=== PATIENT | male | born 1955 | race Caucasian/White ===

== ENCOUNTER 2025-01-09 11:07 | Outpatient (AMB) | payer OTHER, SELFPAY ==
--- NOTE | 2025-01-09 11:35 | A.OFFVIS_ITS ---
Intake Visit Reasons: 3m f/u Accompanied by: Daughter Allergies No Known Allergies Allergy (Verified 01/09/25 11:36) Medication List - Last Reconciled 01/09/25 by Mary Carmen Clemons CNP bisacodyl 10 mg PO carbidopa-levodopa 25-100 mg 1.5 tabs PO QID escitalopram oxalate 10 mg PO DAILY 90 days rasagiline 1 mg PO QAM rosuvastatin 5 mg PO DAILY HPI Comments Details: He was here with his daughter (Gabby). He was taking carbidopa-levodopa 25- 100mg 1.5 tablets four times a day. Tremor was about the same, worse with stress and anxiety. No functional impairment. No difficulty eating, drinking, or swallowing. He felt more anxious, especially related to keeping up with work. He was worried and nervous that he may miss something. His daughter noted that he was more stressed when he was in the office. She noticed that he could be overwhelmed at times and sometimes did not know what to do next or how to proceed, for example if he got an email and was not sure how to respond. Staying active and exercising regularly, walking, riding bike, swimming, and scuba diving. His daughter also noted balance was off at times, but no falls. No difficulty getting up from chair or turning in bed. He had some occasional jerking movements of body or arms, usually at night. Sleep was okay, wakes a few times during the night to use bathroom. Previously felt he was moving slower, especially in the morning, stiff and muscles tight. Less energy, napping in the afternoon for 30-60 minutes. Working at [employer], flexible hours and working remote, daughter taking over practice. More irritable and less patience, some stress in marriage. Anxious and feels down some mornings which gets better as day goes on. Daughter noticed more anxiety and frustration. Goes to [employer] in summer. More anxious, stressed, and overwhelmed at work. Not able to deal with stress as well as before. Moving slowly in the morning. He developed tremors in his legs around 2019, was seen by Dr. Fagan about 6 months later and was told it was just tremor. By 2021, the tremor had gotten slowly worse and right leg was more involved. He felt that his balance was off. His gait had become more shuffling and he tended not to draft roller picker his right leg. His also became slow in doing everything. His posture had become somewhat stooped and he did not swing his arms when he walks. He also had a tendency to lose his balance. He has to rock himself out of the chair. He was moodier and agitated with grandchildren. Sometimes his eyes feel dry and to start water a lot. No change in his speech. His handwriting as well as been poor. Got a second opinion at [facility] and they concurred with Dx and RX. [facility] Medical History (Updated 01/09/25 @ 11:38 by Mary Carmen Clemons CNP) Anxiety HLD (hyperlipidemia) Parkinson disease Review of Systems Const Denies chills, Denies daytime sleepiness, Denies difficulty sleeping, Denies fatigue, Denies fever(s), Denies frequent falls, Denies headache(s), Denies increased appetite, Denies poor appetite, Denies snoring, Denies weakness, Denies weight gain and Denies weight loss Eyes Denies loss of vision ENT Denies vertigo, Denies dizziness, Denies headache(s) and Denies neck pain Card Denies chest pain at rest, Denies chest pain with activity, Denies syncope, Denies leg edema, Denies palpitations, Denies dyspnea and Denies dyspnea on exertion Resp Denies cough, Denies dyspnea, Denies dyspnea on exertion and Denies snoring GI Denies abdominal pain, Denies constipation, Denies heartburn, Denies diarrhea and Denies nausea Denies urinary frequency, Denies urinary incontinence and Denies urinary urgency Musc Denies abnormal gait, Denies back pain, Denies myalgias, Denies arthralgias, Denies neck pain, Denies numbness and Denies tingling Neuro Denies abnormal gait, Denies vertigo, Denies dizziness, Denies syncope, Denies frequent falls, Denies headache(s), Denies lack of coordination, Denies loss of vision, Denies memory loss, Denies numbness, Denies Other visual disturbances, Denies restless legs, Denies seizure-like activity, Denies tingling, Denies paresthesias, Reports tremor(s) and Denies weakness Psych Reports anxiety, Reports depression, Denies auditory hallucinations, Denies memory loss and Denies visual hallucinations Endo Denies fatigue and Denies palpitations Physical Exam Const Other: General Appearance:? normal, in no acute distress. Heart:? S1, S2 normal, no murmurs. Lungs:? clear anteriorly and posteriorly. Musculoskeletal:? normal. Extremities:? no edema. Psych:? alert, oriented, cognitive function intact, cooperative with exam. Neuro Other: Abnormal Neurological Findings:?Decreased facial expressions and reduced blinking frequency. Forward leaning posture and decreased arm swing bilaterally. Mild intermittent bilat leg resting Parkinsonian tremor with a flexion extension at the ankle and in abduction and abduction at the hip, increased when discussing stressors, L > R.?Mild intermittent resting tremor?to LUE.?Mild increase tone and cogwheeling rigidity to BUE, L > R. Mental Status: alert and oriented X 3. Normal attention, orientation, memory, and affect. Cranial Nerves: Pupils are equal, round, and reactive to light. External ocular muscles are intact. Visual altamirano are full, no ptosis. Face is symmetrical, no facial weakness or droop. Facial sensations are normal. Tongue protrudes in midline. Palate elevates symmetrically. Shoulder shrugging is normal Motor Examination: Normal muscle tone, bulk and strength. No atrophy or fasciculations. No drift of the extended upper extremities. DTR 2+. Plantars are flexor. Sensory Exam: Normal light touch, temperature, pinprick, vibration, and joint- position sensations. Rhomberg sign is absent. Coordination: No ataxia. No titubation. Gait Exam: As above. Cerebellar Signs: [id number] is okay. Extrapyramidal System: As above. Speech: Normal. Assessment & Plan Assessment & Plan (1) Parkinson disease: Code(s): G20.A1 - Parkinson's disease without dyskinesia, without mention of fluctuations Category: Medical Qualifiers: Dyskinesia presence: without dyskinesia Fluctuating manifestations: without fluctuating manifestations Qualified Code(s): G20.A1 - Parkinson's disease without dyskinesia, without mention of fluctuations Plan: They were educated on this condition, its progression, and treatment, and questions answered. They were given information where they could read more about it online. Continue rasagiline 1mg 1 tablet in the morning with food. Continue carbidopa-levodopa 25-100mg 1.5 tablets four times a day. Stay physically active. (2) Anxiety: Code(s): F41.9 - Anxiety disorder, unspecified Category: Medical Plan: Escitalopram did not help and medication was stopped. Start clonazepam 0.5mg 1 tablet at bedtime, use/side effects reviewed. Medications: New clonazepam (Klonopin) 0.5 mg PO BEDTIME 30 tabs 0RF 30 days Discontinued escitalopram oxalate Discontinued Reason: Doctor's Order 10 mg PO DAILY 90 days 90 tabs 1RF Coding Level of Care Code Est Pt Level 4 (43547) Diagnoses Parkinson's disease without dyskinesia or fluctuating manifestations G20.A1 Dyskinesia presence: without dyskinesia Fluctuating manifestations: without fluctuating manifestations Anxiety F41.9
--- OUTSIDE RECORDS SUMMARY | 2025-01-09 14:13 | XMS_ITS ---
Author Name [facility] Organization Unknown Encounters Encounter Type Encounter Reason Primary Diagnosis Location Date Ambulatory [facility] 02/28/2024 Care Team Organization Name Specialty Phone Email Start Date End Da te [facility] 10/12/2024 [facility] [id number] [facility] 11/17/2023 [facility] 09/06/2022
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
--- OUTSIDE RECORDS SUMMARY | 2025-01-09 14:13 | XMS_ITS | Clinical Summary ---
Author Organization [address] Address [address] [place] [phone] Phone Care Team Providers Care Machinist Instructor Name Role Phone Vy Antony MD Primary Care Provider [phone] Allergies No known active allergies Medications naproxen (NAPROSYN) 500 MG tablet Take 1 tablet (500 mg total) by mouth 2 (two) times daily.. 30 tablet 12/16/2016 Active aspirin 325 mg EC tablet Take 1 tablet (325 mg total) by mouth daily. 100 tablet 12/19/2020 Active famotidine (PEPCID) 20 mg tablet Take 1 tablet (20 mg total) by mouth 2 (two) times daily. 30 tablet 12/19/2020 Active Social History Tobacco Use Types Packs/Day Years Used Date Smoking Tobacco: Never Smokeless Tobacco: Never Alcohol Use Standard Drinks/Week Comments Yes 0 (1 standard drink = 0.6 oz pur e alcohol) Sex and Gender Information Value Date Recorded Sex Assigned at Not on file Legal Sex Male 7:47 PM EST Gender Identity Not on file Sexual Orientation Not on file Last Filed Vital Signs Vital Sign Reading Time Taken Comments Blood Pressure 124/65 12/19/2020 12:46 PM EDT Pulse 61 12/19/2020 12:46 PM EDT Temperature 36.5 C (97.7 F) 12/19/2020 7:53 AM EDT Respiratory Rate 18 12/19/2020 12:4 6 PM EDT Oxygen Saturation 98% 12/19/2020 12: 46 PM EDT Inhaled Oxygen Concentration - - Weight 80.2 kg (176 lb 12.9 oz) 12/19/2020 7:53 AM EDT Height 175.3 cm (5' 9 ) 12/16/2016 4:35 PM EDT Body Mass Index 26.11 12/16/2016 4:35 PM EDT Plan of Treatment Health Maintenance Due Date Last Done Comments HIV screening 1966 Hepatitis C screening 1971 Tetanus adult (Td q 10,TDAP once) 1973 Lipid disorder screening 1993 Colon cancer screening, Colonoscopy 1998 Pneumococcal Vaccine (50+ years) (1 of 1 - PCV) 2003 Shingles vaccine (Shingrix) (1 of 2 - Shingrix (RZV) 2 Dose Standard Series) 2003 Diabetes screening 12/20/2023 12/19/2020, 12/16/2016 Covid-19 vaccine series (1 - season) 2024 Influenza vaccine 12/31/2024 RSV Immunization (1 - 1-dose 75+ series) 02/15/2028 Meningococcal B Vaccine Aged Out No l onger eligible based on patient's age to complete this topic Meningococcal Vaccine Aged Out No cole michelle eligible based on patient's age to complete this topic Procedures Procedure Name Priority Date/Time Associated Diagnosis Comments BASIC METABOLIC PANEL STAT 12/19/2020 8:16 AM EDT from Last 3 Months or Most Recently Relevant to Health Maintenance Results * (ABNORMAL) Basic metabolic panel (12/19/2020 8:16 AM EDT) Glucose 135(H) 65 - 110 mg/dL 12/19/2020 9:12 AM [facility] Comment: Non-fastin-110 mg/dL Fasting (minimum 6 hrs): 65-99 mg/dL BUN 20(H) 7 - 18 mg/dL 12/19/2020 9:12 AM [facility] Creatinine 0.80 0.70 - 1.30 mg/dL 12/19/2020 9:12 AM [facility] eGFR (-CYMRAES) >60 >60 mL/min/1.7 3m2 12/19/2020 9:12 AM [facility] eGFR (NON -Angolan) >60 >60 mL/min/1.7 3m2 12/19/2020 9:12 AM [facility] Comment: (NOTE) These are estimated GFR values resulting from utilization of a calculation incorporating the best data available for input, but all assumptions may not be correct in every case. In addition, there are several situations (elderly over 70 years, , serious co morbidities, extremes of body size or nutritional status) which could contribute to a misleading result. Therefore, clinical correlation is advised to prevent arriving at an erroneous conclusion based solely on the calculation utilized. Sodium 143 136 - 145 mmol/L 12/19/2020 9:12 AM [facility] Potassium 4.1 3.5 - 5.1 mmol/L 12/19/2020 9:12 AM [facility] Chloride 110(H) 98 - 107 mmol/L 12/19/2020 9:12 AM [facility] CO2 26 21 - 32 mmol/L 12/19/2020 9:12 AM [facility] Anion Gap 7 5 - 15 mmol/L 12/19/2020 9:12 AM [facility] Calcium 8.9 8.5 - 10.1 mg/dL 12/19/2020 9:12 AM [facility] Blood Venipuncture / Unknown 12/19/2020 8:16 AM EDT 12/19/2020 8:21 AM EDT Ricardo Meehan DO LAB BLOOD ORDERABLES [place] [address], [facility] [phone] from Last 3 Months or Most Recently Relevant to Health Maintenance Insurance COMMERCIAL GENERIC MEDICARE [facility] on file COMMERCIAL GENERIC MEDICARE [facility] on file COMMERCIAL GENERIC [facility] Care Teams Machinist Instructor Relationship Specialty Start Date End Date Vy Antony MD PCP - General Internal Medicine 12/16/16
--- OUTSIDE RECORDS SUMMARY | 2025-01-09 14:13 | XMS_ITS | Patient Health Record ---
Author Organization [facility] [address] Address [address] [place] [address] Care Team Providers Care Public Health Epidemiologist Name Role Phone AIDAN ANTONY Primary Care Provider YONI MICHELE Unavailable [phone] Allergies No Known Allergies Results Component Value Reference Range Notes URINALYSIS WITH REFLEX MICRO SCOPIC Reviewed date:06/01/2024 08:55:27 AM Interpretation: Performing Lab: Notes/Report: Specific Seltzer Urine 1.015 1.003-1.030 pH, Urine 6.0 5.0-8.0 pH Leukocytes, Urine Negative Negative Nitrite, Urine Negative Negative Protein, Urine Negative <=Trace mg/dL Glucose, Urine Negative Negative mg/dL Ketones, Urine Negative Negative mg/dL Urobilinogen, Urine 0.2 0.2-1.0 mg/dL Bilirubin, Urine Negative Negative Blood, Urine Negative Negative COMPREHENSIVE METABOLIC PANE L Reviewed date:06/01/2024 09:13:08 AM Interpretation: Performing Lab: Notes/Report: Sodium 141 133-145 mmol/L Potassium 4.2 3.5-5.5 mmol/L Chloride 108 96-110 mmol/L CO2 32 21-32 mmol/L Anion Gap 1 3-11 Glucose 120 70-100 mg/dL BUN 18 5-25 mg/dL Creatinine 0.87 0.70-1.30 mg/dL eGFR 92 >=60 mL/min/1.73m2 Calculati on based on the?Chronic Kidney Disease Epidemiology Collaboration (CKD-EPI) equation refit?without adjustment for race. BUN/Creatinine Ratio 20.7 Calcium 9.1 8.5-10.5 mg/dL AST (SGOT) 22 10-42 unit/L ALT (SGPT) 16 10-60 unit/L Alkaline Phosphatase 67 42-121 unit/L Total Protein 6.7 6.0-8.0 g/dL Albumin 3.6 3.2-5.0 g/dL Total Bilirubin 0.4 0.0-1.4 mg/dL THYROID STIMULATING HORMONE Reviewed date:06/01/2024 08:55:27 AM Interpretation: Performing Lab: Notes/Report: TSH 2.45 0.40-4.00 mcIU/mL LIPID PANEL WITH REFLEX TO D IRECT LDL Reviewed date:06/01/2024 09:15:01 AM Interpretation: Performing Lab: Notes/Report: Cholesterol 198 0-200 mg/dL Triglycerides 87 0-150 mg/dL HDL 76 >=40 mg/dL LDL Calculated 105 0-100 mg/dL VLDL Cholesterol Nabil 17.4 Non HDL Chol. (LDL+VLDL) 122 <145 mg/dL Chol/HDL Ratio 2.6 0.0-4.4 CBC WITH AUTO DIFFERENTIAL Reviewed date:11/21/2024 12:47:54 PM Interpretation: Performing Lab: Notes/Report: WBC 6.5 4.8-10.8 K/mcL RBC 4.70 4.50-5.50 M/mcL Hemoglobin 14.3 13.5-17.5 g/dL Hematocrit 44.7 42.0-54.0 % MCV 94.7 79.0-98.0 FL MCH 30.3 27.0-32.0 pcg MCHC 32.0 32.0-37.0 g/dL RDW 13.3 11.0-15.0 % Platelets 247 130-400 K/mcL MPV 10.4 7.0-11.0 FL NRBC 0.0 <1.0 % NRBC Absolute 0.00 <0.10 K/mcL Neutrophils Relative 60.5 Lymphocytes Relative 23.2 Monocytes Relative 9.9 Eosinophils Relative 5.5 Basophils Relative 0.6 Immature Granulocytes Relative 0.3 Neutrophils Absolute 3.95 1.50-7.00 K/mcL Lymphocytes Absolute 1.52 1.00-5.00 K/mcL Monocytes Absolute 0.65 0.20-1.00 K/mcL Eosinophils Absolute 0.36 0.00-0.50 K/mcL Basophils Absolute 0.04 0.00-0.20 K/mcL Immature Granulocytes Absolute 0.02 0.00-0.03 K/mcL CBC WITH AUTO DIFFERENTIAL Reviewed date:06/01/2024 09:14:50 AM Interpretation: Performing Lab: Notes/Report: WBC 6.1 4.8-10.8 K/mcL RBC 4.70 4.50-5.50 M/mcL Hemoglobin 13.8 13.5-17.5 g/dL Hematocrit 43.7 42.0-54.0 % MCV 92.4 79.0-98.0 FL MCH 29.2 27.0-32.0 pcg MCHC 31.6 32.0-37.0 g/dL RDW 15.3 11.0-15.0 % Platelets 258 130-400 K/mcL MPV 10.9 7.0-11.0 FL NRBC 0.0 <1.0 % NRBC Absolute 0.00 <0.10 K/mcL Neutrophils Relative 63.6 Lymphocytes Relative 20.3 Monocytes Relative 10.1 Eosinophils Relative 5.2 Basophils Relative 0.5 Immature Granulocytes Relative 0.3 Neutrophils Absolute 3.88 1.50-7.00 K/mcL Lymphocytes Absolute 1.24 1.00-5.00 K/mcL Monocytes Absolute 0.62 0.20-1.00 K/mcL Eosinophils Absolute 0.32 0.00-0.50 K/mcL Basophils Absolute 0.03 0.00-0.20 K/mcL Immature Granulocytes Absolute 0.02 0.00-0.03 K/mcL FREE PSA PROFILE Reviewed date:03/12/2024 09:16:50 AM Interpretation: Performing Lab: Notes/Report: The Siemens Advia Centaur Chemiluminescent Immunoassay Free PSA is a calculated value. The diagnostic usefulness is used. Results obtained with different assay methods or of % free PSA has not been established in patients with kits cannot be used interchangeably. Results cannot be Total PSA below 2.6 or above 10 ng/mL. interpreted as absolute evidence of the presence or absence of malignant disease This test was performed using the Centaur Chemiluminescent method. PSA values obtained with other methods cannot be used interchangeably PROSTATIC SPECIFIC ANTIGEN 4.0 0.0-4.0 ng/mL The Siemens Advia Centaur Chemiluminescent Immunoassay is used. Results obtained with different assay methods or kits cannot be used interchangeably. Results cannot be interpreted as absolute evidence of the presence or absence of malignant disease COMPLEXED PSA 3.2 0.0-3.0 ng/mL FREE PSA (CALCULATED) 0.8 %FREE PSA 20 > 25 % TSH Reviewed date:03/01/2024 10:29:26 AM Interpretation: Performing Lab: Notes/Report: [employer], [place] [address] [employer] - Sabine Hammonds MD TSH 1.47 0.40-4.00 uIU/ml LIPID PROFILE Reviewed date:03/01/2024 10:23:35 AM Interpretation: Performing Lab: Notes/Report: CHOLESTEROL 176 0-200 mg/dL TRIGLYCERIDES 60 0-150 mg/dL HDL CHOLESTEROL 75 >40 mg/dL LDL CALCULATED 89 0-100 mg/dL TC-HDLC RATIO 2.4 0-4.4 mg/dL CBC WITH AUTO DIFF Reviewed date:03/01/2024 10:23:45 AM Interpretation: Performing Lab: Notes/Report: Original Ordering Provider: AIDAN ANTONY MD [employer], [place] [address] [employer] - Sabine Hammonds MD WBC 5.7 4.8-10.8 x10-3/uL RBC 4.2 4.5-5.5 x10-6/uL HEMOGLOBIN 12.2 13.5-17.5 g/dL HEMATOCRIT 38.9 42-54 % MCV 92.4 79-98 fL MCH 29.0 27-32 pg MCHC 31.4 32-37 g/dL RDW 13.4 11-15 % PLT COUNT 290 130-400 x10-3/uL MEAN PLATELET VOLUME 10.6 7-11 fL NRBC % AUTO 0.0 <1 % NEUT % 55.2 LYMPH % 24.8 MONO % 12.4 EOS % 6.3 BASO % 1.0 IMMATURE GRANULOCYTES % 0.3 NRBC # AUTO 0.00 <0.1 x10-3/uL ABSOLUTE NEUT 3.15 1.5-7.0 x10-3/uL LYMPH # 1.42 1-5.0 x10-3/uL MONO # 0.71 0.2-1.0 x10-3/uL EOS # 0.36 0-0.5 x10-3/uL BASO # 0.06 0-0.2 x10-3/uL IMMATURE GRANULOCYTES # 0.02 0-0.03 x10-3/uL COMPREHENSIVE METABOLIC PANE L Reviewed date:03/01/2024 11:28:30 AM Interpretation: Performing Lab: Notes/Report: Note Original Orderi ng Provider: AIDAN ANTONY MD GLUCOSE 125 70-100 mg/dL Reference range applicable to fasting specimens only BUN 23 5-25 mg/dL CREAT 0.95 0.7-1.3 mg/dL GLOMERULAR FILTRATION RATE 86 >60 This eGFR result was calculated using the CKD-EPI 2020 Creatinine Equation SODIUM 141 135-145 mEq/L POTASSIUM 4.1 3.5-5.5 mmol/L CHLORIDE 108 96-110 mmol/L CO2 29 21-32 mmol/L ANION GAP 4 3-11 CALCIUM 9.1 8.5-10.5 mg/dL TOTAL PROTEIN 6.5 6.0-8.0 G/dL ALBUMIN 3.5 3.2-5.0 G/dL BILI,TOTAL 0.5 0.0-1.4 mg/dL SGOT 17 10-42 U/L SGPT 14 10-60 U/L ALK PHOS 77 42-121 U/L URINALYSIS Reviewed date:03/01/2024 10:29:08 AM Interpretation: Performing Lab: Notes/Report: Note Original Ordering Provider: AIDAN ANTONY MD [employer] [place] [address] [employer] - Sabine Hammonds MD GLUCOSE, (UA) NEGATIVE NEGATIVE mg/dL BILIRUBIN, URINE NEGATIVE NEGATIVE KETONE, URINE NEGATIVE NEGATIVE mg/dL SPECIFIC GRAVITY, URINE 1.024 1.003-1.030 BLOOD, URINE NEGATIVE NEGATIVE PH, URINE 5.5 5.0-8.0 PROTEIN, URINE NEGATIVE <= TRACE mg/dl UROBILINOGEN, URINE 0.2 0.2-1.0 E.U./dL NITRITE, URINE NEGATIVE NEGATIVE LEUKOCYTE ESTERASE, URINE NEGATIVE NEGATIVE Note Original Ordering Provider: AIDAN ANTONY MD [employer], [place] [address] [employer] - Sabine Hammonds MD PROSTATE SPECIFIC ANTIGEN ROSA GONZALEZ Reviewed date:11/21/2024 12:47:54 PM Interpretation: Performing Lab: Notes/Report: The Siemens Advia FUJIAN HAIYUANaur Chemiluminescent Immunoassay is used. Results obtained with different assay methods or kits cannot be used interchangeably. Results cannot be interpreted as absolute evidence of the presence or absence of malignant disease. PSA 4.00 0.00-4.00 ng/mL COMPREHENSIVE METABOLIC PANE L Reviewed date:11/21/2024 12:47:54 PM Interpretation: Performing Lab: Notes/Report: Sodium 140 133-145 mmol/L Potassium 4.2 3.5-5.5 mmol/L Chloride 107 96-110 mmol/L CO2 30 21-32 mmol/L Anion Gap 3 3-11 Glucose 116 70-100 mg/dL BUN 18 5-25 mg/dL Creatinine 0.86 0.70-1.30 mg/dL eGFR 93 >=60 mL/min/1.73m2 Calculati on based on the Chronic Kidney Disease Epidemiology Collaboration (CKD-EPI) equation refit without adjustment for race. BUN/Creatinine Ratio 20.9 Calcium 9.1 8.5-10.5 mg/dL AST (SGOT) 14 10-42 unit/L ALT (SGPT) 9 10-60 unit/L Alkaline Phosphatase 67 42-121 unit/L Total Protein 6.7 6.0-8.0 g/dL Albumin 3.8 3.2-5.0 g/dL Total Bilirubin 0.7 0.0-1.4 mg/dL LIPID PANEL WITH REFLEX TO D IRECT LDL Reviewed date:11/21/2024 12:47:54 PM Interpretation: Performing Lab: Notes/Report: Cholesterol 192 0-200 mg/dL Triglycerides 120 0-150 mg/dL HDL 70 >=40 mg/dL LDL Calculated 98 0-100 mg/dL VLDL Cholesterol Nabil 24 Non HDL Chol. (LDL+VLDL) 122 <145 mg/dL Chol/HDL Ratio 2.7 0.0-4.4 HEMOGLOBIN A1c Reviewed date:11/28/2024 01:16:39 PM Interpretation:5.9 Performing Lab: Notes/Report: 5.9 Reason For Referral No Information Medications Medication SIG (Take, Route, Frequency, Duration) Notes Start Date End Date Status Rasagiline Mesylate 1 MG 1 tablet Orally Once a day Active Carbidopa-Levodopa 25-100 MG 1 tablet as needed Orally 4 times a day Active Rosuvastatin Calcium 5 MG TAKE 1 TABLET BY MOUTH EVERY DAY; Duration: 90 Active Magnesium 400 MG as directed Orally Active Escitalopram Oxalate 10 MG 1 tablet Oral ly Once a day Active Sertraline HCl 50 MG 1 tablet Orally Onc e a day Active Flax Seed Oil 1000 MG as directed Orally Active Ibuprofen 600 MG TAKE 1 TABLET BY LIBERTY TH 3 TIMES A DAY NEEDED WITH FOOD/MILK; Duration: 30 Active Immunizations Vaccine Route Administration Date Status Comme nts prevnar 13 Unknown 04/10/2018 Administered Tdap Unknown 01/26/2016 Administered Social History Tobacco Use: Social History Observation Description Date Details (start date - stop date) Never Smoker NA - NA Tobacco Use/Smoking Question Answer Notes Are you a nonsmoker Problems Problem Type SNOMED Code ICD Code Onset Dates Problem Status W/U Status Risk Notes Problem Vitamin D deficiency (55677239) Vitamin D deficiency, unspecified (E55.9) Active confirmed Problem Mixed hyperlipidemia (232462146) Mixed hyperlipidemia (E78.2) Active confirmed Problem Hyperlipidemia (15097145) Hyperlipidemia, unspecified (E78.5) Active confirmed Problem Otitis externa of left ear (2897031081791416) Otitis externa in other diseases classified elsewhere, left ear (H62.42) Active confirmed Problem Constipation (13956876) Constipation, unspecified (K59.00) Active confirmed Problem Screening for malignant neoplasm of prostate (373758817) Encounter for screening for malignant neoplasm of prostate (Z12.5) Active confirmed Problem Diabetes mellitus screening (649114762) Encounter for screening for diabetes mellitus (Z13.1) Active confirmed Problem Lower urinary tract symptoms due to benign prostatic hypertrophy (92607228995528) Benign prostatic hyperplasia with lower urinary tract symptoms (N40.1) Active confirmed Problem Pure hypercholesterolemia (847168111) Pure hypercholesterolemia (E78.00) Active confirmed Problem Hyperlipidaemia (91634702) Hyperlipidemia, unspecified hyperlipidemia type (E78.5) Active confirmed Problem Anxiety (80234362) Anxiety (F41.9) Active confi rmed Problem Adult health examination (344117493) Adult general medical exam (Z00.00) Active confirmed Problem Annual health maintenance examination (27192130) Annual physical exam (Z00.00) Active confirmed Problem Tremor (31255326) Tremor (R25.1) Active confirm ed Problem Constipation (70566444) Constipation, unspecified constipation type (K59.00) Active confirmed Problem Parkinson disease (42414517) Parkinson disease (G20) Active confirmed Problem Anemia (078623984) Acute anemia (D64.9) Active confirmed Problem 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) PVC (premature ventricular contraction) (I49.3) Active confirmed Problem History of anemia (074470808) History of anemia (Z86.2) Active confirmed Problem Otalgia of left ear (3526328407) Otalgia of left ear (H92.02) Active confirmed Problem Lipid screening (401972057) Lipid screening (Z13.220) Active confirmed Problem Disorder of bilatera l ears (disorder) (1623145186397250) Congestion of both ears (H93.8X3) Active confirmed Problem Parkinsonism (disorder) (16619416) Parkinsonism, unspecified (G20.C) Active confirmed Problem Benign prostatic hypertrophy without outflow obstruction (084103548) BPH without urinary obstruction (N40.0) Active confirmed Problem Generalized anxiety disorder (99745895) Anxiety, generalized (F41.1) Active confirmed Problem Parkinson's disease (disorder) (75337310) Parkinson's disease, unspecified whether dyskinesia present, unspecified whether manifestations fluctuate (G20.A1) Active confirmed Vital Signs Heart Rate 62 /min 11/28/2024 Oximetry 98 % 11/28/2024 Blood pressure diastolic 66 mm Hg 11/28/2024 Height 68 in 11/28/2024 Blood pressure systolic 120 mm Hg 11/28/2024 Weight 180.8 lbs 11/28/2024 BMI 27.49 kg/m2 11/28/2024 Encounters Encounter Location Date Provider Diagnosis [facility] [address] [place] [address] 03/07/2024 YONI LENY Mixed hyperlipidemia E78.2 ; Parkinson disease G20 ; Benign prostatic hyperplasia with lower urinary tract symptoms N40.1 ; Anxiety, generalized F41.1 ; History of anemia Z86.2 and Parkinson's disease, unspecified whether dyskinesia present, unspecified whether manifestations fluctuate G20.A1 [facility] [address] [place] [address] 05/31/2024 YONI LENY Mixed hyperlipidemia E78.2 ; General medical exam Z00.00 ; Parkinson disease G20 ; Constipation, unspecified K59.00 ; Anxiety F41.9 ; BPH without urinary obstruction N40.0 ; Annual physical exam Z00.00 ; Encounter for screening for diabetes mellitus Z13.1 ; Encounter for screening for malignant neoplasm of prostate Z12.5 ; Depression screening Z13.31 ; Screening for substance abuse Z13.89 ; Advanced directives, counseling/discussion Z71.89 and Screening for diabetes mellitus Z13.[address] [facility] [address] [place] [address] 11/28/2024 YONI LENY Hyperlipidemia, unspecified hyperlipidemia type E78.5 ; Parkinson disease G20 ; Prediabetes R73.03 ; Benign prostatic hyperplasia with lower urinary tract symptoms N40.1 and Encounter for examination of blood pressure without abnormal findings Z01.[address] [facility] [address] [place] [address] 01/20/2024 TALAL ANTONY [facility] [address] [place] [address] 05/28/2024 YONI LENY [facility] [address] [place] [address] 05/28/2024 YONI LENY Benign prostatic hyperplasia with lower urinary tract symptoms N40.1 [facility] [address] [address] 08/01/2024 TALAL ANTONY [facility] [address] [facility] [address] [place] [address] 11/29/2024 YONI LENY [facility] [address] [facility] [address] [place] [address] 05/31/2024 TALAL ANTONY [facility] [address] [address] 11/28/2024 YONI LENY Assessments Encounter Date Diagnosis (ICD Code) Assessment Notes Treatment Notes Treatment Clinical Notes Section Notes 03/07/2024 Mixed hyperlipidemia (ICD-10 - E78.2) Lorne is a 69-year-old male present today for follow-up. Past medical history includes hyperlipidemia, Parkinson's, BPH. #Hyperlipidemia: Most recent labs showed lipids all within normal limits. Plan to continue rosuvastatin 5 mg p.o. once daily. # Parkinson's: Patient currently on carbidopa-levodopa 25-100 mg 4 times daily as needed. In addition to rasagiline 1 mg p.o. once daily. Patient states tremors are at a minimum and has been stable since he was diagnosed at age 67. Patient very active and exercises daily in addition to a well-balanced diet in order to promote overall health. # BPH: Well-managed. Patient currently not on any medications. Follows up with urology as needed. # Anxiety: Patient states he is doing well on sertraline 25 mg p.o. once daily. Denies anxiety or depression or SI. No further management needed. #Constipation: Patient reports history of constipation. States he is on a regimen of magnesium with flaxseed oil 1000 mg p.o. once daily for which she takes at night. # Anemia: Most recent blood work indicate slightly low RBC, slightly low hemoglobin and hematocrit of 12.2 and 38.9. Has been anemic in the past and trialed with iron supplment. Patient reports he donates blood every 8 weeks as often as he can. This may be the cause or related. Recommended patient take an iron supplement and stop donating blood at this time. Of note we discussed how this may cause constipation and recommended patient taking iron supplement every other day or every 3 days until next follow up. Follow up in 3 months for lab repeat. All questions answered to patients satisfaction. Patient verbalized understanding of diagnosis and treatments explained. To call sooner prior to next visit it any questions/concerns arise. Case discussed with collaborating physician Dr. Antony who reviewed the assessment and plan. Chart, medications, labs, vital signs reviewed. Dictation was accomplished with the use of Noah voice recognition software, prone to medical misidentifications and grammatical errors. This is unintentional and the practitioner does try to identify and correct these, but some could still be present. Please do not hesitate to contact practitioner for clarification. 03/07/2024 Parkinson disease (ICD-10 - G20) Lorne is a 69-year-old male present today for follow-up. Past medical history includes hyperlipidemia, Parkinson's, BPH. #Hyperlipidemia: Most recent labs showed lipids all within normal limits. Plan to continue rosuvastatin 5 mg p.o. once daily. # Parkinson's: Patient currently on carbidopa-levodopa 25-100 mg 4 times daily as needed. In addition to rasagiline 1 mg p.o. once daily. Patient states tremors are at a minimum and has been stable since he was diagnosed at age 67. Patient very active and exercises daily in addition to a well-balanced diet in order to promote overall health. # BPH: Well-managed. Patient currently not on any medications. Follows up with urology as needed. # Anxiety: Patient states he is doing well on sertraline 25 mg p.o. once daily. Denies anxiety or depression or SI. No further management needed. #Constipation: Patient reports history of constipation. States he is on a regimen of magnesium with flaxseed oil 1000 mg p.o. once daily for which she takes at night. # Anemia: Most recent blood work indicate slightly low RBC, slightly low hemoglobin and hematocrit of 12.2 and 38.9. Has been anemic in the past and trialed with iron supplment. Patient reports he donates blood every 8 weeks as often as he can. This may be the cause or related. Recommended patient take an iron supplement and stop donating blood at this time. Of note we discussed how this may cause constipation and recommended patient taking iron supplement every other day or every 3 days until next follow up. Follow up in 3 months for lab repeat. All questions answered to patients satisfaction. Patient verbalized understanding of diagnosis and treatments explained. To call sooner prior to next visit it any questions/concerns arise. Case discussed with collaborating physician Dr. Antony who reviewed the assessment and plan. Chart, medications, labs, vital signs reviewed. Dictation was accomplished with the use of [employer] voice recognition software, prone to medical misidentifications and grammatical errors. This is unintentional and the practitioner does try to identify and correct these, but some could still be present. Please do not hesitate to contact practitioner for clarification. 05/28/2024 Benign prostatic hyperplasia with lower urinary tract symptoms (ICD-10 - N40.1) 05/31/2024 Mixed hyperlipidemia (ICD-10 - E78.2) Lorne is a pleasant 69-year-old male present today for MWV. #Hyperlipidemia: Managed on rosuvastatin 5 mg p.o. once daily. Most recent labs reveal slightly elevated LDL of 105. Patient reports he recently returned back from [facility] and this may be related to diet. Plan to continue rosuvastatin 5 mg and make lifestyle modifications including limiting butter, fried food and fatty food from diet. Encouraged eating more fiber, protein, fruits and vegetables. Plan to repeat lipids with next follow-up. # Parkinson's: Patient currently on carbidopa-levodopa 25-100 mg 4 times daily as needed. In addition to rasagiline 1 mg p.o. once daily. Patient states tremors are at a minimum and has been stable since he was diagnosed at age 67. Patient very active and exercises daily in addition to a well-balanced diet in order to promote overall health. #Anxiety: Patient overall doing well and managing on sertraline 50 mg p.o. once daily. Does not need refills at this time. # Elevated glucose of 120. A1c in office today --- 5.7%. Will continue to monitor. # BPH: Well-managed. Patient currently not on any medications. Follows up with urology as needed. #Constipation: Patient reports history of constipation. States he is on a regimen of magnesium with flaxseed oil 1000 mg p.o. once daily for which she takes at night. #Anemia: Resolved. Patient reports history of anemia. Previous blood work revealed slightly low RBC and slightly low hemoglobin hematocrit of 12.2 and 38.9. Has trialed iron supplements. States he donates blood every 8 weeks as often as he can. Recommended patient positives the donation of blood in order to see improvement in CBC. Patient was recommended to start iron supplement but states due to history of constipation he avoided this. Most recent blood work reveals CBC has returned to normal limits. This includes RBCs, hemoglobin and hematocrit. Advised patient to discontinue blood donations as we continue to monitor CBC. Plan to repeat CBC with 6-month follow-up. #Prevention: Up-to-date on all vaccines including influenza, COVID, pneumococcal, shingles, tetanus and RSV. Patient to undergo another colonoscopy. Last was performed in 2018 with plans to repeat in 5 years. This has been delayed due to Dr. Boothe schedule. This is now scheduled for July 2024. Discussed labs which are all within normal limits aside from what was addressed above. Fall risk assessment performed. Patient denies any alcohol, tobacco or marijuana or other drug use. HCP discussed. Plan to follow-up in 6 months and repeat labs including CBC, CMP, lipid, hemoglobin A1c and PSA. Patient is here for a Medicare wellness visit. Complete paperwork was reviewed and updated and has been filed and scanned. Depression screen completed. Alcohol AUDIT SCREEN completed. Obesity screen completed. Cardiovascular risk stratification screen completed. Cognition assessed and within reasonable limits Fall risk assessed. Discussed healthcare proxy. Discussed [place] order for life sustaining treatment, end-of-life issues, intubation and resuscitation dialysis artificial nutrition and hydration is appropriate. We discussed [place] order for life sustaining treatment and healthcare proxy. We discussed need for resuscitation, intubation, ventilation, need for dialysis, short-term versus long-term, nutrition, IV nutrition and hydration. Total time spent was 45 minutes with greater than 50% spent on counseling and coordinating care. Our practice utilizes Medicare approve Chronic Care management. This covers your referrals, prescription renewals, health maintenance and after hour phone calls. All questions answered to patients satisfaction. Patient verbalized understanding of diagnosis and treatments explained. To call sooner prior to next visit it any questions/concerns arise. Case discussed with collaborating physician Dr. Antony who reviewed the assessment and plan. Chart, medications, labs, vital signs reviewed. Dictation was accomplished with the use of [employer] voice recognition software, prone to medical misidentifications and grammatical errors. This is unintentional and the practitioner does try to identify and correct these, but some could still be present. Please do not hesitate to contact practitioner for clarification. 05/31/2024 General medical exam (ICD-10 - Z00.00) Lorne is a pleasant 69-year-old male present today for [facility]. #Hyperlipidemia: Managed on rosuvastatin 5 mg p.o. once daily. Most recent labs reveal slightly elevated LDL of 105. Patient reports he recently returned back from [facility] and this may be related to diet. Plan to continue rosuvastatin 5 mg and make lifestyle modifications including limiting butter, fried food and fatty food from diet. Encouraged eating more fiber, protein, fruits and vegetables. Plan to repeat lipids with next follow-up. # Parkinson's: Patient currently on carbidopa-levodopa 25-100 mg 4 times daily as needed. In addition to rasagiline 1 mg p.o. once daily. Patient states tremors are at a minimum and has been stable since he was diagnosed at age 67. Patient very active and exercises daily in addition to a well-balanced diet in order to promote overall health. #Anxiety: Patient overall doing well and managing on sertraline 50 mg p.o. once daily. Does not need refills at this time. # Elevated glucose of 120. A1c in office today --- 5.7%. Will continue to monitor. # BPH: Well-managed. Patient currently not on any medications. Follows up with urology as needed. #Constipation: Patient reports history of constipation. States he is on a regimen of magnesium with flaxseed oil 1000 mg p.o. once daily for which she takes at night. #Anemia: Resolved. Patient reports history of anemia. Previous blood work revealed slightly low RBC and slightly low hemoglobin hematocrit of 12.2 and 38.9. Has trialed iron supplements. States he donates blood every 8 weeks as often as he can. Recommended patient positives the donation of blood in order to see improvement in CBC. Patient was recommended to start iron supplement but states due to history of constipation he avoided this. Most recent blood work reveals CBC has returned to normal limits. This includes RBCs, hemoglobin and hematocrit. Advised patient to discontinue blood donations as we continue to monitor CBC. Plan to repeat CBC with 6-month follow-up. #Prevention: Up-to-date on all vaccines including influenza, COVID, pneumococcal, shingles, tetanus and RSV. Patient to undergo another colonoscopy. Last was performed in 2018 with plans to repeat in 5 years. This has been delayed due to Dr. Boothe schedule. This is now scheduled for July 2024. Discussed labs which are all within normal limits aside from what was addressed above. Fall risk assessment performed. Patient denies any alcohol, tobacco or marijuana or other drug use. HCP discussed. Plan to follow-up in 6 months and repeat labs including CBC, CMP, lipid, hemoglobin A1c and PSA. Patient is here for a Medicare wellness visit. Complete paperwork was reviewed and updated and has been filed and scanned. Depression screen completed. Alcohol AUDIT SCREEN completed. Obesity screen completed. Cardiovascular risk stratification screen completed. Cognition assessed and within reasonable limits Fall risk assessed. Discussed healthcare proxy. Discussed [place] order for life sustaining treatment, end-of-life issues, intubation and resuscitation dialysis artificial nutrition and hydration is appropriate. We discussed [place] order for life sustaining treatment and healthcare proxy. We discussed need for resuscitation, intubation, ventilation, need for dialysis, short-term versus long-term, nutrition, IV nutrition and hydration. Total time spent was 45 minutes with greater than 50% spent on counseling and coordinating care. Our practice utilizes Medicare approve Chronic Care management. This covers your referrals, prescription renewals, health maintenance and after hour phone calls. All questions answered to patients satisfaction. Patient verbalized understanding of diagnosis and treatments explained. To call sooner prior to next visit it any questions/concerns arise. Case discussed with collaborating physician Dr. Antony who reviewed the assessment and plan. Chart, medications, labs, vital signs reviewed. Dictation was accomplished with the use of [employer] voice recognition software, prone to medical misidentifications and grammatical errors. This is unintentional and the practitioner does try to identify and correct these, but some could still be present. Please do not hesitate to contact practitioner for clarification. 11/28/2024 Hyperlipidemia, unspecified hyperlipidemia type (ICD-10 - E78.5) Lorne is a pleasant 69-year-old male present today for follow-up. #Colonoscopy performed in up-to-date. Will try to obtain these records. #Hyperlipidemia: Lipids stable. Continue rosuvastatin 5 mg p.o. once daily. #Parkinson's: Followed by neurology. Managed on carbidopa-levodopa and rasagiline. States he was diagnosed at age of 67. Overall very active and exercises daily in addition to eating well-balanced diet in order to promote overall health. #Anxiety: Switched from sertraline to escitalopram and overall doing well. Prescribed by neurologist. #Prediabetes: A1c has increased from 5.7-5.9. Provided handout of a diabetic healthy diet. Encouraged to focus on diet and exercise. Did discuss that this A1c is considered prediabetes however age-appropriate. Will continue to monitor. #BPH: Well-managed. Followed by urology. Monitors PSA routinely. #History of constipation: Currently on a regimen of magnesium and flaxseed oil daily. #Anemia: Resolved. #Plan to follow-up in 6 months for Medicare wellness visit with labs. All questions answered to patients satisfaction. Patient verbalized understanding of diagnosis and treatments explained. To call sooner prior to next visit it any questions/concerns arise. Case discussed with collaborating physician Dr. Antony who reviewed the assessment and plan. Chart, medications, labs, vital signs reviewed. Dictation was accomplished with the use of [employer] voice recognition software, prone to medical misidentifications and grammatical errors. This is unintentional and the practitioner does try to identify and correct these, but some could still be present. Please do not hesitate to contact practitioner for clarification. 11/28/2024 Parkinson disease (ICD-10 - G20) Lorne is a pleasant 69-year-old male present today for follow-up. #Colonoscopy performed in up-to-date. Will try to obtain these records. #Hyperlipidemia: Lipids stable. Continue rosuvastatin 5 mg p.o. once daily. #Parkinson's: Followed by neurology. Managed on carbidopa-levodopa and rasagiline. States he was diagnosed at age of 67. Overall very active and exercises daily in addition to eating well-balanced diet in order to promote overall health. #Anxiety: Switched from sertraline to escitalopram and overall doing well. Prescribed by neurologist. #Prediabetes: A1c has increased from 5.7-5.9. Provided handout of a diabetic healthy diet. Encouraged to focus on diet and exercise. Did discuss that this A1c is considered prediabetes however age-appropriate. Will continue to monitor. #BPH: Well-managed. Followed by urology. Monitors PSA routinely. #History of constipation: Currently on a regimen of magnesium and flaxseed oil daily. #Anemia: Resolved. #Plan to follow-up in 6 months for Medicare wellness visit with labs. All questions answered to patients satisfaction. Patient verbalized understanding of diagnosis and treatments explained. To call sooner prior to next visit it any questions/concerns arise. Case discussed with collaborating physician Dr. Antony who reviewed the assessment and plan. Chart, medications, labs, vital signs reviewed. Dictation was accomplished with the use of [employer] voice recognition software, prone to medical misidentifications and grammatical errors. This is unintentional and the practitioner does try to identify and correct these, but some could still be present. Please do not hesitate to contact practitioner for clarification. 11/28/2024 Prediabetes (ICD-10 - R73.03) Lorne is a pleasant 69-year-old male present today for follow-up. #Colonoscopy performed in up-to-date. Will try to obtain these records. #Hyperlipidemia: Lipids stable. Continue rosuvastatin 5 mg p.o. once daily. #Parkinson's: Followed by neurology. Managed on carbidopa-levodopa and rasagiline. States he was diagnosed at age of 67. Overall very active and exercises daily in addition to eating well-balanced diet in order to promote overall health. #Anxiety: Switched from sertraline to escitalopram and overall doing well. Prescribed by neurologist. #Prediabetes: A1c has increased from 5.7-5.9. Provided handout of a diabetic healthy diet. Encouraged to focus on diet and exercise. Did discuss that this A1c is considered prediabetes however age-appropriate. Will continue to monitor. #BPH: Well-managed. Followed by urology. Monitors PSA routinely. #History of constipation: Currently on a regimen of magnesium and flaxseed oil daily. #Anemia: Resolved. #Plan to follow-up in 6 months for Medicare wellness visit with labs. All questions answered to patients satisfaction. Patient verbalized understanding of diagnosis and treatments explained. To call sooner prior to next visit it any questions/concerns arise. Case discussed with collaborating physician Dr. Antony who reviewed the assessment and plan. Chart, medications, labs, vital signs reviewed. Dictation was accomplished with the use of [employer] voice recognition software, prone to medical misidentifications and grammatical errors. This is unintentional and the practitioner does try to identify and correct these, but some could still be present. Please do not hesitate to contact practitioner for clarification. 05/31/2024 Parkinson disease (ICD-10 - G20) Lorne is a pleasant 69-year-old male present today for [facility]. #Hyperlipidemia: Managed on rosuvastatin 5 mg p.o. once daily. Most recent labs reveal slightly elevated LDL of 105. Patient reports he recently returned back from [facility] and this may be related to diet. Plan to continue rosuvastatin 5 mg and make lifestyle modifications including limiting butter, fried food and fatty food from diet. Encouraged eating more fiber, protein, fruits and vegetables. Plan to repeat lipids with next follow-up. # Parkinson's: Patient currently on carbidopa-levodopa 25-100 mg 4 times daily as needed. In addition to rasagiline 1 mg p.o. once daily. Patient states tremors are at a minimum and has been stable since he was diagnosed at age 67. Patient very active and exercises daily in addition to a well-balanced diet in order to promote overall health. #Anxiety: Patient overall doing well and managing on sertraline 50 mg p.o. once daily. Does not need refills at this time. # Elevated glucose of 120. A1c in office today --- 5.7%. Will continue to monitor. # BPH: Well-managed. Patient currently not on any medications. Follows up with urology as needed. #Constipation: Patient reports history of constipation. States he is on a regimen of magnesium with flaxseed oil 1000 mg p.o. once daily for which she takes at night. #Anemia: Resolved. Patient reports history of anemia. Previous blood work revealed slightly low RBC and slightly low hemoglobin hematocrit of 12.2 and 38.9. Has trialed iron supplements. States he donates blood every 8 weeks as often as he can. Recommended patient positives the donation of blood in order to see improvement in CBC. Patient was recommended to start iron supplement but states due to history of constipation he avoided this. Most recent blood work reveals CBC has returned to normal limits. This includes RBCs, hemoglobin and hematocrit. Advised patient to discontinue blood donations as we continue to monitor CBC. Plan to repeat CBC with 6-month follow-up. #Prevention: Up-to-date on all vaccines including influenza, COVID, pneumococcal, shingles, tetanus and RSV. Patient to undergo another colonoscopy. Last was performed in 2018 with plans to repeat in 5 years. This has been delayed due to Dr. Boothe schedule. This is now scheduled for July 2024. Discussed labs which are all within normal limits aside from what was addressed above. Fall risk assessment performed. Patient denies any alcohol, tobacco or marijuana or other drug use. HCP discussed. Plan to follow-up in 6 months and repeat labs including CBC, CMP, lipid, hemoglobin A1c and PSA. Patient is here for a Medicare wellness visit. Complete paperwork was reviewed and updated and has been filed and scanned. Depression screen completed. Alcohol AUDIT SCREEN completed. Obesity screen completed. Cardiovascular risk stratification screen completed. Cognition assessed and within reasonable limits Fall risk assessed. Discussed healthcare proxy. Discussed [place] order for life sustaining treatment, end-of-life issues, intubation and resuscitation dialysis artificial nutrition and hydration is appropriate. We discussed [place] order for life sustaining treatment and healthcare proxy. We discussed need for resuscitation, intubation, ventilation, need for dialysis, short-term versus long-term, nutrition, IV nutrition and hydration. Total time spent was 45 minutes with greater than 50% spent on counseling and coordinating care. Our practice utilizes Medicare approve Chronic Care management. This covers your referrals, prescription renewals, health maintenance and after hour phone calls. All questions answered to patients satisfaction. Patient verbalized understanding of diagnosis and treatments explained. To call sooner prior to next visit it any questions/concerns arise. Case discussed with collaborating physician Dr. Antony who reviewed the assessment and plan. Chart, medications, labs, vital signs reviewed. Dictation was accomplished with the use of [employer] voice recognition software, prone to medical misidentifications and grammatical errors. This is unintentional and the practitioner does try to identify and correct these, but some could still be present. Please do not hesitate to contact practitioner for clarification. 03/07/2024 Benign prostatic hyperplasia with lower urinary tract symptoms (ICD-10 - N40.1) Lorne is a 69-year-old male present today for follow-up. Past medical history includes hyperlipidemia, Parkinson's, BPH. #Hyperlipidemia: Most recent labs showed lipids all within normal limits. Plan to continue rosuvastatin 5 mg p.o. once daily. # Parkinson's: Patient currently on carbidopa-levodopa 25-100 mg 4 times daily as needed. In addition to rasagiline 1 mg p.o. once daily. Patient states tremors are at a minimum and has been stable since he was diagnosed at age 67. Patient very active and exercises daily in addition to a well-balanced diet in order to promote overall health. # BPH: Well-managed. Patient currently not on any medications. Follows up with urology as needed. # Anxiety: Patient states he is doing well on sertraline 25 mg p.o. once daily. Denies anxiety or depression or SI. No further management needed. #Constipation: Patient reports history of constipation. States he is on a regimen of magnesium with flaxseed oil 1000 mg p.o. once daily for which she takes at night. # Anemia: Most recent blood work indicate slightly low RBC, slightly low hemoglobin and hematocrit of 12.2 and 38.9. Has been anemic in the past and trialed with iron supplment. Patient reports he donates blood every 8 weeks as often as he can. This may be the cause or related. Recommended patient take an iron supplement and stop donating blood at this time. Of note we discussed how this may cause constipation and recommended patient taking iron supplement every other day or every 3 days until next follow up. Follow up in 3 months for lab repeat. All questions answered to patients satisfaction. Patient verbalized understanding of diagnosis and treatments explained. To call sooner prior to next visit it any questions/concerns arise. Case discussed with collaborating physician Dr. Antony who reviewed the assessment and plan. Chart, medications, labs, vital signs reviewed. Dictation was accomplished with the use of [employer] voice recognition software, prone to medical misidentifications and grammatical errors. This is unintentional and the practitioner does try to identify and correct these, but some could still be present. Please do not hesitate to contact practitioner for clarification. 03/07/2024 Anxiety, generalized (ICD-10 - F41.1) Lorne is a 69-year-old male present today for follow-up. Past medical history includes hyperlipidemia, Parkinson's, BPH. #Hyperlipidemia: Most recent labs showed lipids all within normal limits. Plan to continue rosuvastatin 5 mg p.o. once daily. # Parkinson's: Patient currently on carbidopa-levodopa 25-100 mg 4 times daily as needed. In addition to rasagiline 1 mg p.o. once daily. Patient states tremors are at a minimum and has been stable since he was diagnosed at age 67. Patient very active and exercises daily in addition to a well-balanced diet in order to promote overall health. # BPH: Well-managed. Patient currently not on any medications. Follows up with urology as needed. # Anxiety: Patient states he is doing well on sertraline 25 mg p.o. once daily. Denies anxiety or depression or SI. No further management needed. #Constipation: Patient reports history of constipation. States he is on a regimen of magnesium with flaxseed oil 1000 mg p.o. once daily for which she takes at night. # Anemia: Most recent blood work indicate slightly low RBC, slightly low hemoglobin and hematocrit of 12.2 and 38.9. Has been anemic in the past and trialed with iron supplment. Patient reports he donates blood every 8 weeks as often as he can. This may be the cause or related. Recommended patient take an iron supplement and stop donating blood at this time. Of note we discussed how this may cause constipation and recommended patient taking iron supplement every other day or every 3 days until next follow up. Follow up in 3 months for lab repeat. All questions answered to patients satisfaction. Patient verbalized understanding of diagnosis and treatments explained. To call sooner prior to next visit it any questions/concerns arise. Case discussed with collaborating physician Dr. Antony who reviewed the assessment and plan. Chart, medications, labs, vital signs reviewed. Dictation was accomplished with the use of [employer] voice recognition software, prone to medical misidentifications and grammatical errors. This is unintentional and the practitioner does try to identify and correct these, but some could still be present. Please do not hesitate to contact practitioner for clarification. 05/31/2024 Constipation, unspecified (ICD-10 - K59.00) Lorne is a pleasant 69-year-old male present today for [facility]. #Hyperlipidemia: Managed on rosuvastatin 5 mg p.o. once daily. Most recent labs reveal slightly elevated LDL of 105. Patient reports he recently returned back from [facility] and this may be related to diet. Plan to continue rosuvastatin 5 mg and make lifestyle modifications including limiting butter, fried food and fatty food from diet. Encouraged eating more fiber, protein, fruits and vegetables. Plan to repeat lipids with next follow-up. # Parkinson's: Patient currently on carbidopa-levodopa 25-100 mg 4 times daily as needed. In addition to rasagiline 1 mg p.o. once daily. Patient states tremors are at a minimum and has been stable since he was diagnosed at age 67. Patient very active and exercises daily in addition to a well-balanced diet in order to promote overall health. #Anxiety: Patient overall doing well and managing on sertraline 50 mg p.o. once daily. Does not need refills at this time. # Elevated glucose of 120. A1c in office today --- 5.7%. Will continue to monitor. # BPH: Well-managed. Patient currently not on any medications. Follows up with urology as needed. #Constipation: Patient reports history of constipation. States he is on a regimen of magnesium with flaxseed oil 1000 mg p.o. once daily for which she takes at night. #Anemia: Resolved. Patient reports history of anemia. Previous blood work revealed slightly low RBC and slightly low hemoglobin hematocrit of 12.2 and 38.9. Has trialed iron supplements. States he donates blood every 8 weeks as often as he can. Recommended patient positives the donation of blood in order to see improvement in CBC. Patient was recommended to start iron supplement but states due to history of constipation he avoided this. Most recent blood work reveals CBC has returned to normal limits. This includes RBCs, hemoglobin and hematocrit. Advised patient to discontinue blood donations as we continue to monitor CBC. Plan to repeat CBC with 6-month follow-up. #Prevention: Up-to-date on all vaccines including influenza, COVID, pneumococcal, shingles, tetanus and RSV. Patient to undergo another colonoscopy. Last was performed in 2018 with plans to repeat in 5 years. This has been delayed due to Dr. Boothe schedule. This is now scheduled for July 2024. Discussed labs which are all within normal limits aside from what was addressed above. Fall risk assessment performed. Patient denies any alcohol, tobacco or marijuana or other drug use. HCP discussed. Plan to follow-up in 6 months and repeat labs including CBC, CMP, lipid, hemoglobin A1c and PSA. Patient is here for a Medicare wellness visit. Complete paperwork was reviewed and updated and has been filed and scanned. Depression screen completed. Alcohol AUDIT SCREEN completed. Obesity screen completed. Cardiovascular risk stratification screen completed. Cognition assessed and within reasonable limits Fall risk assessed. Discussed healthcare proxy. Discussed [place] order for life sustaining treatment, end-of-life issues, intubation and resuscitation dialysis artificial nutrition and hydration is appropriate. We discussed [place] order for life sustaining treatment and healthcare proxy. We discussed need for resuscitation, intubation, ventilation, need for dialysis, short-term versus long-term, nutrition, IV nutrition and hydration. Total time spent was 45 minutes with greater than 50% spent on counseling and coordinating care. Our practice utilizes Medicare approve Chronic Care management. This covers your referrals, prescription renewals, health maintenance and after hour phone calls. All questions answered to patients satisfaction. Patient verbalized understanding of diagnosis and treatments explained. To call sooner prior to next visit it any questions/concerns arise. Case discussed with collaborating physician Dr. Antony who reviewed the assessment and plan. Chart, medications, labs, vital signs reviewed. Dictation was accomplished with the use of [employer] voice recognition software, prone to medical misidentifications and grammatical errors. This is unintentional and the practitioner does try to identify and correct these, but some could still be present. Please do not hesitate to contact practitioner for clarification. 11/28/2024 Benign prostatic hyperplasia with lower urinary tract symptoms (ICD-10 - N40.1) Lorne is a pleasant 69-year-old male present today for follow-up. #Colonoscopy performed in up-to-date. Will try to obtain these records. #Hyperlipidemia: Lipids stable. Continue rosuvastatin 5 mg p.o. once daily. #Parkinson's: Followed by neurology. Managed on carbidopa-levodopa and rasagiline. States he was diagnosed at age of 67. Overall very active and exercises daily in addition to eating well-balanced diet in order to promote overall health. #Anxiety: Switched from sertraline to escitalopram and overall doing well. Prescribed by neurologist. #Prediabetes: A1c has increased from 5.7-5.9. Provided handout of a diabetic healthy diet. Encouraged to focus on diet and exercise. Did discuss that this A1c is considered prediabetes however age-appropriate. Will continue to monitor. #BPH: Well-managed. Followed by urology. Monitors PSA routinely. #History of constipation: Currently on a regimen of magnesium and flaxseed oil daily. #Anemia: Resolved. #Plan to follow-up in 6 months for Medicare wellness visit with labs. All questions answered to patients satisfaction. Patient verbalized understanding of diagnosis and treatments explained. To call sooner prior to next visit it any questions/concerns arise. Case discussed with collaborating physician Dr. Antony who reviewed the assessment and plan. Chart, medications, labs, vital signs reviewed. Dictation was accomplished with the use of Noah voice recognition software, prone to medical misidentifications and grammatical errors. This is unintentional and the practitioner does try to identify and correct these, but some could still be present. Please do not hesitate to contact practitioner for clarification. 11/28/2024 Encounter for examination of blood pressure without abnormal findings (ICD-10 - Z01.30) Lorne is a pleasant 69-year-old male present today for follow-up. #Colonoscopy performed in up-to-date. Will try to obtain these records. #Hyperlipidemia: Lipids stable. Continue rosuvastatin 5 mg p.o. once daily. #Parkinson's: Followed by neurology. Managed on carbidopa-levodopa and rasagiline. States he was diagnosed at age of 67. Overall very active and exercises daily in addition to eating well-balanced diet in order to promote overall health. #Anxiety: Switched from sertraline to escitalopram and overall doing well. Prescribed by neurologist. #Prediabetes: A1c has increased from 5.7-5.9. Provided handout of a diabetic healthy diet. Encouraged to focus on diet and exercise. Did discuss that this A1c is considered prediabetes however age-appropriate. Will continue to monitor. #BPH: Well-managed. Followed by urology. Monitors PSA routinely. #History of constipation: Currently on a regimen of magnesium and flaxseed oil daily. #Anemia: Resolved. #Plan to follow-up in 6 months for Medicare wellness visit with labs. All questions answered to patients satisfaction. Patient verbalized understanding of diagnosis and treatments explained. To call sooner prior to next visit it any questions/concerns arise. Case discussed with collaborating physician Dr. Antony who reviewed the assessment and plan. Chart, medications, labs, vital signs reviewed. Dictation was accomplished with the use of Noah voice recognition software, prone to medical misidentifications and grammatical errors. This is unintentional and the practitioner does try to identify and correct these, but some could still be present. Please do not hesitate to contact practitioner for clarification. 05/31/2024 Anxiety (ICD-10 - F41.9) Lorne is a pleasant 69-year-old male present today for MWV. #Hyperlipidemia: Managed on rosuvastatin 5 mg p.o. once daily. Most recent labs reveal slightly elevated LDL of 105. Patient reports he recently returned back from [facility] and this may be related to diet. Plan to continue rosuvastatin 5 mg and make lifestyle modifications including limiting butter, fried food and fatty food from diet. Encouraged eating more fiber, protein, fruits and vegetables. Plan to repeat lipids with next follow-up. # Parkinson's: Patient currently on carbidopa-levodopa 25-100 mg 4 times daily as needed. In addition to rasagiline 1 mg p.o. once daily. Patient states tremors are at a minimum and has been stable since he was diagnosed at age 67. Patient very active and exercises daily in addition to a well-balanced diet in order to promote overall health. #Anxiety: Patient overall doing well and managing on sertraline 50 mg p.o. once daily. Does not need refills at this time. # Elevated glucose of 120. A1c in office today --- 5.7%. Will continue to monitor. # BPH: Well-managed. Patient currently not on any medications. Follows up with urology as needed. #Constipation: Patient reports history of constipation. States he is on a regimen of magnesium with flaxseed oil 1000 mg p.o. once daily for which she takes at night. #Anemia: Resolved. Patient reports history of anemia. Previous blood work revealed slightly low RBC and slightly low hemoglobin hematocrit of 12.2 and 38.9. Has trialed iron supplements. States he donates blood every 8 weeks as often as he can. Recommended patient positives the donation of blood in order to see improvement in CBC. Patient was recommended to start iron supplement but states due to history of constipation he avoided this. Most recent blood work reveals CBC has returned to normal limits. This includes RBCs, hemoglobin and hematocrit. Advised patient to discontinue blood donations as we continue to monitor CBC. Plan to repeat CBC with 6-month follow-up. #Prevention: Up-to-date on all vaccines including influenza, COVID, pneumococcal, shingles, tetanus and RSV. Patient to undergo another colonoscopy. Last was performed in 2018 with plans to repeat in 5 years. This has been delayed due to Dr. Boothe schedule. This is now scheduled for July 2024. Discussed labs which are all within normal limits aside from what was addressed above. Fall risk assessment performed. Patient denies any alcohol, tobacco or marijuana or other drug use. HCP discussed. Plan to follow-up in 6 months and repeat labs including CBC, CMP, lipid, hemoglobin A1c and PSA. Patient is here for a Medicare wellness visit. Complete paperwork was reviewed and updated and has been filed and scanned. Depression screen completed. Alcohol AUDIT SCREEN completed. Obesity screen completed. Cardiovascular risk stratification screen completed. Cognition assessed and within reasonable limits Fall risk assessed. Discussed healthcare proxy. Discussed [place] order for life sustaining treatment, end-of-life issues, intubation and resuscitation dialysis artificial nutrition and hydration is appropriate. We discussed [place] order for life sustaining treatment and healthcare proxy. We discussed need for resuscitation, intubation, ventilation, need for dialysis, short-term versus long-term, nutrition, IV nutrition and hydration. Total time spent was 45 minutes with greater than 50% spent on counseling and coordinating care. Our practice utilizes Medicare approve Chronic Care management. This covers your referrals, prescription renewals, health maintenance and after hour phone calls. All questions answered to patients satisfaction. Patient verbalized understanding of diagnosis and treatments explained. To call sooner prior to next visit it any questions/concerns arise. Case discussed with collaborating physician Dr. Antony who reviewed the assessment and plan. Chart, medications, labs, vital signs reviewed. Dictation was accomplished with the use of [employer] voice recognition software, prone to medical misidentifications and grammatical errors. This is unintentional and the practitioner does try to identify and correct these, but some could still be present. Please do not hesitate to contact practitioner for clarification. 03/07/2024 History of anemia (ICD-10 - Z86.2) Lorne is a 69-year-old male present today for follow-up. Past medical history includes hyperlipidemia, Parkinson's, BPH. #Hyperlipidemia: Most recent labs showed lipids all within normal limits. Plan to continue rosuvastatin 5 mg p.o. once daily. # Parkinson's: Patient currently on carbidopa-levodopa 25-100 mg 4 times daily as needed. In addition to rasagiline 1 mg p.o. once daily. Patient states tremors are at a minimum and has been stable since he was diagnosed at age 67. Patient very active and exercises daily in addition to a well-balanced diet in order to promote overall health. # BPH: Well-managed. Patient currently not on any medications. Follows up with urology as needed. # Anxiety: Patient states he is doing well on sertraline 25 mg p.o. once daily. Denies anxiety or depression or SI. No further management needed. #Constipation: Patient reports history of constipation. States he is on a regimen of magnesium with flaxseed oil 1000 mg p.o. once daily for which she takes at night. # Anemia: Most recent blood work indicate slightly low RBC, slightly low hemoglobin and hematocrit of 12.2 and 38.9. Has been anemic in the past and trialed with iron supplment. Patient reports he donates blood every 8 weeks as often as he can. This may be the cause or related. Recommended patient take an iron supplement and stop donating blood at this time. Of note we discussed how this may cause constipation and recommended patient taking iron supplement every other day or every 3 days until next follow up. Follow up in 3 months for lab repeat. All questions answered to patients satisfaction. Patient verbalized understanding of diagnosis and treatments explained. To call sooner prior to next visit it any questions/concerns arise. Case discussed with collaborating physician Dr. Antony who reviewed the assessment and plan. Chart, medications, labs, vital signs reviewed. Dictation was accomplished with the use of Dragon voice recognition software, prone to medical misidentifications and grammatical errors. This is unintentional and the practitioner does try to identify and correct these, but some could still be present. Please do not hesitate to contact practitioner for clarification. 03/07/2024 Parkinson's disease, unspecified whether dyskinesia present, unspecified whether manifestations fluctuate (ICD-10 - G20.A1) Lorne is a 69-year-old male present today for follow-up. Past medical history includes hyperlipidemia, Parkinson's, BPH. #Hyperlipidemia: Most recent labs showed lipids all within normal limits. Plan to continue rosuvastatin 5 mg p.o. once daily. # Parkinson's: Patient currently on carbidopa-levodopa 25-100 mg 4 times daily as needed. In addition to rasagiline 1 mg p.o. once daily. Patient states tremors are at a minimum and has been stable since he was diagnosed at age 67. Patient very active and exercises daily in addition to a well-balanced diet in order to promote overall health. # BPH: Well-managed. Patient currently not on any medications. Follows up with urology as needed. # Anxiety: Patient states he is doing well on sertraline 25 mg p.o. once daily. Denies anxiety or depression or SI. No further management needed. #Constipation: Patient reports history of constipation. States he is on a regimen of magnesium with flaxseed oil 1000 mg p.o. once daily for which she takes at night. # Anemia: Most recent blood work indicate slightly low RBC, slightly low hemoglobin and hematocrit of 12.2 and 38.9. Has been anemic in the past and trialed with iron supplment. Patient reports he donates blood every 8 weeks as often as he can. This may be the cause or related. Recommended patient take an iron supplement and stop donating blood at this time. Of note we discussed how this may cause constipation and recommended patient taking iron supplement every other day or every 3 days until next follow up. Follow up in 3 months for lab repeat. All questions answered to patients satisfaction. Patient verbalized understanding of diagnosis and treatments explained. To call sooner prior to next visit it any questions/concerns arise. Case discussed with collaborating physician Dr. Antony who reviewed the assessment and plan. Chart, medications, labs, vital signs reviewed. Dictation was accomplished with the use of [employer] voice recognition software, prone to medical misidentifications and grammatical errors. This is unintentional and the practitioner does try to identify and correct these, but some could still be present. Please do not hesitate to contact practitioner for clarification. 05/31/2024 BPH without urinary obstruction (ICD-10 - N40.0) Lorne is a pleasant 69-year-old male present today for MWV. #Hyperlipidemia: Managed on rosuvastatin 5 mg p.o. once daily. Most recent labs reveal slightly elevated LDL of 105. Patient reports he recently returned back from [facility] and this may be related to diet. Plan to continue rosuvastatin 5 mg and make lifestyle modifications including limiting butter, fried food and fatty food from diet. Encouraged eating more fiber, protein, fruits and vegetables. Plan to repeat lipids with next follow-up. # Parkinson's: Patient currently on carbidopa-levodopa 25-100 mg 4 times daily as needed. In addition to rasagiline 1 mg p.o. once daily. Patient states tremors are at a minimum and has been stable since he was diagnosed at age 67. Patient very active and exercises daily in addition to a well-balanced diet in order to promote overall health. #Anxiety: Patient overall doing well and managing on sertraline 50 mg p.o. once daily. Does not need refills at this time. # Elevated glucose of 120. A1c in office today --- 5.7%. Will continue to monitor. # BPH: Well-managed. Patient currently not on any medications. Follows up with urology as needed. #Constipation: Patient reports history of constipation. States he is on a regimen of magnesium with flaxseed oil 1000 mg p.o. once daily for which she takes at night. #Anemia: Resolved. Patient reports history of anemia. Previous blood work revealed slightly low RBC and slightly low hemoglobin hematocrit of 12.2 and 38.9. Has trialed iron supplements. States he donates blood every 8 weeks as often as he can. Recommended patient positives the donation of blood in order to see improvement in CBC. Patient was recommended to start iron supplement but states due to history of constipation he avoided this. Most recent blood work reveals CBC has returned to normal limits. This includes RBCs, hemoglobin and hematocrit. Advised patient to discontinue blood donations as we continue to monitor CBC. Plan to repeat CBC with 6-month follow-up. #Prevention: Up-to-date on all vaccines including influenza, COVID, pneumococcal, shingles, tetanus and RSV. Patient to undergo another colonoscopy. Last was performed in 2019 with plans to repeat in 5 years. This has been delayed due to Dr. Boothe schedule. This is now scheduled for July 2024. Discussed labs which are all within normal limits aside from what was addressed above. Fall risk assessment performed. Patient denies any alcohol, tobacco or marijuana or other drug use. HCP discussed. Plan to follow-up in 6 months and repeat labs including CBC, CMP, lipid, hemoglobin A1c and PSA. Patient is here for a Medicare wellness visit. Complete paperwork was reviewed and updated and has been filed and scanned. Depression screen completed. Alcohol AUDIT SCREEN completed. Obesity screen completed. Cardiovascular risk stratification screen completed. Cognition assessed and within reasonable limits Fall risk assessed. Discussed healthcare proxy. Discussed [place] order for life sustaining treatment, end-of-life issues, intubation and resuscitation dialysis artificial nutrition and hydration is appropriate. We discussed [place] order for life sustaining treatment and healthcare proxy. We discussed need for resuscitation, intubation, ventilation, need for dialysis, short-term versus long-term, nutrition, IV nutrition and hydration. Total time spent was 45 minutes with greater than 50% spent on counseling and coordinating care. Our practice utilizes Medicare approve Chronic Care management. This covers your referrals, prescription renewals, health maintenance and after hour phone calls. All questions answered to patients satisfaction. Patient verbalized understanding of diagnosis and treatments explained. To call sooner prior to next visit it any questions/concerns arise. Case discussed with collaborating physician Dr. Antony who reviewed the assessment and plan. Chart, medications, labs, vital signs reviewed. Dictation was accomplished with the use of [employer] voice recognition software, prone to medical misidentifications and grammatical errors. This is unintentional and the practitioner does try to identify and correct these, but some could still be present. Please do not hesitate to contact practitioner for clarification. 05/31/2024 Annual physical exam (ICD-10 - Z00.00) Lorne is a pleasant 69-year-old male present today for MWV. #Hyperlipidemia: Managed on rosuvastatin 5 mg p.o. once daily. Most recent labs reveal slightly elevated LDL of 105. Patient reports he recently returned back from [facility] and this may be related to diet. Plan to continue rosuvastatin 5 mg and make lifestyle modifications including limiting butter, fried food and fatty food from diet. Encouraged eating more fiber, protein, fruits and vegetables. Plan to repeat lipids with next follow-up. # Parkinson's: Patient currently on carbidopa-levodopa 25-100 mg 4 times daily as needed. In addition to rasagiline 1 mg p.o. once daily. Patient states tremors are at a minimum and has been stable since he was diagnosed at age 67. Patient very active and exercises daily in addition to a well-balanced diet in order to promote overall health. #Anxiety: Patient overall doing well and managing on sertraline 50 mg p.o. once daily. Does not need refills at this time. # Elevated glucose of 120. A1c in office today --- 5.7%. Will continue to monitor. # BPH: Well-managed. Patient currently not on any medications. Follows up with urology as needed. #Constipation: Patient reports history of constipation. States he is on a regimen of magnesium with flaxseed oil 1000 mg p.o. once daily for which she takes at night. #Anemia: Resolved. Patient reports history of anemia. Previous blood work revealed slightly low RBC and slightly low hemoglobin hematocrit of 12.2 and 38.9. Has trialed iron supplements. States he donates blood every 8 weeks as often as he can. Recommended patient positives the donation of blood in order to see improvement in CBC. Patient was recommended to start iron supplement but states due to history of constipation he avoided this. Most recent blood work reveals CBC has returned to normal limits. This includes RBCs, hemoglobin and hematocrit. Advised patient to discontinue blood donations as we continue to monitor CBC. Plan to repeat CBC with 6-month follow-up. #Prevention: Up-to-date on all vaccines including influenza, COVID, pneumococcal, shingles, tetanus and RSV. Patient to undergo another colonoscopy. Last was performed in 2018 with plans to repeat in 5 years. This has been delayed due to Dr. Boothe schedule. This is now scheduled for July 2024. Discussed labs which are all within normal limits aside from what was addressed above. Fall risk assessment performed. Patient denies any alcohol, tobacco or marijuana or other drug use. HCP discussed. Plan to follow-up in 6 months and repeat labs including CBC, CMP, lipid, hemoglobin A1c and PSA. Patient is here for a Medicare wellness visit. Complete paperwork was reviewed and updated and has been filed and scanned. Depression screen completed. Alcohol AUDIT SCREEN completed. Obesity screen completed. Cardiovascular risk stratification screen completed. Cognition assessed and within reasonable limits Fall risk assessed. Discussed healthcare proxy. Discussed [place] order for life sustaining treatment, end-of-life issues, intubation and resuscitation dialysis artificial nutrition and hydration is appropriate. We discussed [place] order for life sustaining treatment and healthcare proxy. We discussed need for resuscitation, intubation, ventilation, need for dialysis, short-term versus long-term, nutrition, IV nutrition and hydration. Total time spent was 45 minutes with greater than 50% spent on counseling and coordinating care. Our practice utilizes Medicare approve Chronic Care management. This covers your referrals, prescription renewals, health maintenance and after hour phone calls. All questions answered to patients satisfaction. Patient verbalized understanding of diagnosis and treatments explained. To call sooner prior to next visit it any questions/concerns arise. Case discussed with collaborating physician Dr. Antony who reviewed the assessment and plan. Chart, medications, labs, vital signs reviewed. Dictation was accomplished with the use of [employer] voice recognition software, prone to medical misidentifications and grammatical errors. This is unintentional and the practitioner does try to identify and correct these, but some could still be present. Please do not hesitate to contact practitioner for clarification. 05/31/2024 Encounter for screening for diabetes mellitus (ICD-10 - Z13.1) Lorne is a pleasant 69-year-old male present today for MWV. #Hyperlipidemia: Managed on rosuvastatin 5 mg p.o. once daily. Most recent labs reveal slightly elevated LDL of 105. Patient reports he recently returned back from [facility] and this may be related to diet. Plan to continue rosuvastatin 5 mg and make lifestyle modifications including limiting butter, fried food and fatty food from diet. Encouraged eating more fiber, protein, fruits and vegetables. Plan to repeat lipids with next follow-up. # Parkinson's: Patient currently on carbidopa-levodopa 25-100 mg 4 times daily as needed. In addition to rasagiline 1 mg p.o. once daily. Patient states tremors are at a minimum and has been stable since he was diagnosed at age 67. Patient very active and exercises daily in addition to a well-balanced diet in order to promote overall health. #Anxiety: Patient overall doing well and managing on sertraline 50 mg p.o. once daily. Does not need refills at this time. # Elevated glucose of 120. A1c in office today --- 5.7%. Will continue to monitor. # BPH: Well-managed. Patient currently not on any medications. Follows up with urology as needed. #Constipation: Patient reports history of constipation. States he is on a regimen of magnesium with flaxseed oil 1000 mg p.o. once daily for which she takes at night. #Anemia: Resolved. Patient reports history of anemia. Previous blood work revealed slightly low RBC and slightly low hemoglobin hematocrit of 12.2 and 38.9. Has trialed iron supplements. States he donates blood every 8 weeks as often as he can. Recommended patient positives the donation of blood in order to see improvement in CBC. Patient was recommended to start iron supplement but states due to history of constipation he avoided this. Most recent blood work reveals CBC has returned to normal limits. This includes RBCs, hemoglobin and hematocrit. Advised patient to discontinue blood donations as we continue to monitor CBC. Plan to repeat CBC with 6-month follow-up. #Prevention: Up-to-date on all vaccines including influenza, COVID, pneumococcal, shingles, tetanus and RSV. Patient to undergo another colonoscopy. Last was performed in 2018 with plans to repeat in 5 years. This has been delayed due to Dr. Boothe schedule. This is now scheduled for July 2024. Discussed labs which are all within normal limits aside from what was addressed above. Fall risk assessment performed. Patient denies any alcohol, tobacco or marijuana or other drug use. HCP discussed. Plan to follow-up in 6 months and repeat labs including CBC, CMP, lipid, hemoglobin A1c and PSA. Patient is here for a Medicare wellness visit. Complete paperwork was reviewed and updated and has been filed and scanned. Depression screen completed. Alcohol AUDIT SCREEN completed. Obesity screen completed. Cardiovascular risk stratification screen completed. Cognition assessed and within reasonable limits Fall risk assessed. Discussed healthcare proxy. Discussed [place] order for life sustaining treatment, end-of-life issues, intubation and resuscitation dialysis artificial nutrition and hydration is appropriate. We discussed [place] order for life sustaining treatment and healthcare proxy. We discussed need for resuscitation, intubation, ventilation, need for dialysis, short-term versus long-term, nutrition, IV nutrition and hydration. Total time spent was 45 minutes with greater than 50% spent on counseling and coordinating care. Our practice utilizes Medicare approve Chronic Care management. This covers your referrals, prescription renewals, health maintenance and after hour phone calls. All questions answered to patients satisfaction. Patient verbalized understanding of diagnosis and treatments explained. To call sooner prior to next visit it any questions/concerns arise. Case discussed with collaborating physician Dr. Antony who reviewed the assessment and plan. Chart, medications, labs, vital signs reviewed. Dictation was accomplished with the use of [employer] voice recognition software, prone to medical misidentifications and grammatical errors. This is unintentional and the practitioner does try to identify and correct these, but some could still be present. Please do not hesitate to contact practitioner for clarification. 05/31/2024 Encounter for screening for malignant neoplasm of prostate (ICD-10 - Z12.5) Lorne is a pleasant 69-year-old male present today for MWV. #Hyperlipidemia: Managed on rosuvastatin 5 mg p.o. once daily. Most recent labs reveal slightly elevated LDL of 105. Patient reports he recently returned back from [facility] and this may be related to diet. Plan to continue rosuvastatin 5 mg and make lifestyle modifications including limiting butter, fried food and fatty food from diet. Encouraged eating more fiber, protein, fruits and vegetables. Plan to repeat lipids with next follow-up. # Parkinson's: Patient currently on carbidopa-levodopa 25-100 mg 4 times daily as needed. In addition to rasagiline 1 mg p.o. once daily. Patient states tremors are at a minimum and has been stable since he was diagnosed at age 67. Patient very active and exercises daily in addition to a well-balanced diet in order to promote overall health. #Anxiety: Patient overall doing well and managing on sertraline 50 mg p.o. once daily. Does not need refills at this time. # Elevated glucose of 120. A1c in office today --- 5.7%. Will continue to monitor. # BPH: Well-managed. Patient currently not on any medications. Follows up with urology as needed. #Constipation: Patient reports history of constipation. States he is on a regimen of magnesium with flaxseed oil 1000 mg p.o. once daily for which she takes at night. #Anemia: Resolved. Patient reports history of anemia. Previous blood work revealed slightly low RBC and slightly low hemoglobin hematocrit of 12.2 and 38.9. Has trialed iron supplements. States he donates blood every 8 weeks as often as he can. Recommended patient positives the donation of blood in order to see improvement in CBC. Patient was recommended to start iron supplement but states due to history of constipation he avoided this. Most recent blood work reveals CBC has returned to normal limits. This includes RBCs, hemoglobin and hematocrit. Advised patient to discontinue blood donations as we continue to monitor CBC. Plan to repeat CBC with 6-month follow-up. #Prevention: Up-to-date on all vaccines including influenza, COVID, pneumococcal, shingles, tetanus and RSV. Patient to undergo another colonoscopy. Last was performed in 2018 with plans to repeat in 5 years. This has been delayed due to Dr. Boothe schedule. This is now scheduled for July 2024. Discussed labs which are all within normal limits aside from what was addressed above. Fall risk assessment performed. Patient denies any alcohol, tobacco or marijuana or other drug use. HCP discussed. Plan to follow-up in 6 months and repeat labs including CBC, CMP, lipid, hemoglobin A1c and PSA. Patient is here for a Medicare wellness visit. Complete paperwork was reviewed and updated and has been filed and scanned. Depression screen completed. Alcohol AUDIT SCREEN completed. Obesity screen completed. Cardiovascular risk stratification screen completed. Cognition assessed and within reasonable limits Fall risk assessed. Discussed healthcare proxy. Discussed [place] order for life sustaining treatment, end-of-life issues, intubation and resuscitation dialysis artificial nutrition and hydration is appropriate. We discussed [place] order for life sustaining treatment and healthcare proxy. We discussed need for resuscitation, intubation, ventilation, need for dialysis, short-term versus long-term, nutrition, IV nutrition and hydration. Total time spent was 45 minutes with greater than 50% spent on counseling and coordinating care. Our practice utilizes Medicare approve Chronic Care management. This covers your referrals, prescription renewals, health maintenance and after hour phone calls. All questions answered to patients satisfaction. Patient verbalized understanding of diagnosis and treatments explained. To call sooner prior to next visit it any questions/concerns arise. Case discussed with collaborating physician Dr. Antony who reviewed the assessment and plan. Chart, medications, labs, vital signs reviewed. Dictation was accomplished with the use of [employer] voice recognition software, prone to medical misidentifications and grammatical errors. This is unintentional and the practitioner does try to identify and correct these, but some could still be present. Please do not hesitate to contact practitioner for clarification. 05/31/2024 Depression screening (ICD-10 - Z13.31) Lorne is a pleasant 69-year-old male present today for MWV. #Hyperlipidemia: Managed on rosuvastatin 5 mg p.o. once daily. Most recent labs reveal slightly elevated LDL of 105. Patient reports he recently returned back from [facility] and this may be related to diet. Plan to continue rosuvastatin 5 mg and make lifestyle modifications including limiting butter, fried food and fatty food from diet. Encouraged eating more fiber, protein, fruits and vegetables. Plan to repeat lipids with next follow-up. # Parkinson's: Patient currently on carbidopa-levodopa 25-100 mg 4 times daily as needed. In addition to rasagiline 1 mg p.o. once daily. Patient states tremors are at a minimum and has been stable since he was diagnosed at age 67. Patient very active and exercises daily in addition to a well-balanced diet in order to promote overall health. #Anxiety: Patient overall doing well and managing on sertraline 50 mg p.o. once daily. Does not need refills at this time. # Elevated glucose of 120. A1c in office today --- 5.7%. Will continue to monitor. # BPH: Well-managed. Patient currently not on any medications. Follows up with urology as needed. #Constipation: Patient reports history of constipation. States he is on a regimen of magnesium with flaxseed oil 1000 mg p.o. once daily for which she takes at night. #Anemia: Resolved. Patient reports history of anemia. Previous blood work revealed slightly low RBC and slightly low hemoglobin hematocrit of 12.2 and 38.9. Has trialed iron supplements. States he donates blood every 8 weeks as often as he can. Recommended patient positives the donation of blood in order to see improvement in CBC. Patient was recommended to start iron supplement but states due to history of constipation he avoided this. Most recent blood work reveals CBC has returned to normal limits. This includes RBCs, hemoglobin and hematocrit. Advised patient to discontinue blood donations as we continue to monitor CBC. Plan to repeat CBC with 6-month follow-up. #Prevention: Up-to-date on all vaccines including influenza, COVID, pneumococcal, shingles, tetanus and RSV. Patient to undergo another colonoscopy. Last was performed in 2019 with plans to repeat in 5 years. This has been delayed due to Dr. Boothe schedule. This is now scheduled for July 2024. Discussed labs which are all within normal limits aside from what was addressed above. Fall risk assessment performed. Patient denies any alcohol, tobacco or marijuana or other drug use. HCP discussed. Plan to follow-up in 6 months and repeat labs including CBC, CMP, lipid, hemoglobin A1c and PSA. Patient is here for a Medicare wellness visit. Complete paperwork was reviewed and updated and has been filed and scanned. Depression screen completed. Alcohol AUDIT SCREEN completed. Obesity screen completed. Cardiovascular risk stratification screen completed. Cognition assessed and within reasonable limits Fall risk assessed. Discussed healthcare proxy. Discussed [place] order for life sustaining treatment, end-of-life issues, intubation and resuscitation dialysis artificial nutrition and hydration is appropriate. We discussed [place] order for life sustaining treatment and healthcare proxy. We discussed need for resuscitation, intubation, ventilation, need for dialysis, short-term versus long-term, nutrition, IV nutrition and hydration. Total time spent was 45 minutes with greater than 50% spent on counseling and coordinating care. Our practice utilizes Medicare approve Chronic Care management. This covers your referrals, prescription renewals, health maintenance and after hour phone calls. All questions answered to patients satisfaction. Patient verbalized understanding of diagnosis and treatments explained. To call sooner prior to next visit it any questions/concerns arise. Case discussed with collaborating physician Dr. Antony who reviewed the assessment and plan. Chart, medications, labs, vital signs reviewed. Dictation was accomplished with the use of [employer] voice recognition software, prone to medical misidentifications and grammatical errors. This is unintentional and the practitioner does try to identify and correct these, but some could still be present. Please do not hesitate to contact practitioner for clarification. 05/31/2024 Screening for substance abuse (ICD-10 - Z13.89) Lorne is a pleasant 69-year-old male present today for [facility]. #Hyperlipidemia: Managed on rosuvastatin 5 mg p.o. once daily. Most recent labs reveal slightly elevated LDL of 105. Patient reports he recently returned back from [facility] and this may be related to diet. Plan to continue rosuvastatin 5 mg and make lifestyle modifications including limiting butter, fried food and fatty food from diet. Encouraged eating more fiber, protein, fruits and vegetables. Plan to repeat lipids with next follow-up. # Parkinson's: Patient currently on carbidopa-levodopa 25-100 mg 4 times daily as needed. In addition to rasagiline 1 mg p.o. once daily. Patient states tremors are at a minimum and has been stable since he was diagnosed at age 67. Patient very active and exercises daily in addition to a well-balanced diet in order to promote overall health. #Anxiety: Patient overall doing well and managing on sertraline 50 mg p.o. once daily. Does not need refills at this time. # Elevated glucose of 120. A1c in office today --- 5.7%. Will continue to monitor. # BPH: Well-managed. Patient currently not on any medications. Follows up with urology as needed. #Constipation: Patient reports history of constipation. States he is on a regimen of magnesium with flaxseed oil 1000 mg p.o. once daily for which she takes at night. #Anemia: Resolved. Patient reports history of anemia. Previous blood work revealed slightly low RBC and slightly low hemoglobin hematocrit of 12.2 and 38.9. Has trialed iron supplements. States he donates blood every 8 weeks as often as he can. Recommended patient positives the donation of blood in order to see improvement in CBC. Patient was recommended to start iron supplement but states due to history of constipation he avoided this. Most recent blood work reveals CBC has returned to normal limits. This includes RBCs, hemoglobin and hematocrit. Advised patient to discontinue blood donations as we continue to monitor CBC. Plan to repeat CBC with 6-month follow-up. #Prevention: Up-to-date on all vaccines including influenza, COVID, pneumococcal, shingles, tetanus and RSV. Patient to undergo another colonoscopy. Last was performed in 2018 with plans to repeat in 5 years. This has been delayed due to Dr. Boothe schedule. This is now scheduled for July 2024. Discussed labs which are all within normal limits aside from what was addressed above. Fall risk assessment performed. Patient denies any alcohol, tobacco or marijuana or other drug use. HCP discussed. Plan to follow-up in 6 months and repeat labs including CBC, CMP, lipid, hemoglobin A1c and PSA. Patient is here for a Medicare wellness visit. Complete paperwork was reviewed and updated and has been filed and scanned. Depression screen completed. Alcohol AUDIT SCREEN completed. Obesity screen completed. Cardiovascular risk stratification screen completed. Cognition assessed and within reasonable limits Fall risk assessed. Discussed healthcare proxy. Discussed [place] order for life sustaining treatment, end-of-life issues, intubation and resuscitation dialysis artificial nutrition and hydration is appropriate. We discussed [place] order for life sustaining treatment and healthcare proxy. We discussed need for resuscitation, intubation, ventilation, need for dialysis, short-term versus long-term, nutrition, IV nutrition and hydration. Total time spent was 45 minutes with greater than 50% spent on counseling and coordinating care. Our practice utilizes Medicare approve Chronic Care management. This covers your referrals, prescription renewals, health maintenance and after hour phone calls. All questions answered to patients satisfaction. Patient verbalized understanding of diagnosis and treatments explained. To call sooner prior to next visit it any questions/concerns arise. Case discussed with collaborating physician Dr. Antony who reviewed the assessment and plan. Chart, medications, labs, vital signs reviewed. Dictation was accomplished with the use of [employer] voice recognition software, prone to medical misidentifications and grammatical errors. This is unintentional and the practitioner does try to identify and correct these, but some could still be present. Please do not hesitate to contact practitioner for clarification. 05/31/2024 Advanced directives, counseling/discus jose (ICD-10 - Z71.89) Lorne is a pleasant 69-year-old male present today for V. #Hyperlipidemia: Managed on rosuvastatin 5 mg p.o. once daily. Most recent labs reveal slightly elevated LDL of 105. Patient reports he recently returned back from [facility] and this may be related to diet. Plan to continue rosuvastatin 5 mg and make lifestyle modifications including limiting butter, fried food and fatty food from diet. Encouraged eating more fiber, protein, fruits and vegetables. Plan to repeat lipids with next follow-up. # Parkinson's: Patient currently on carbidopa-levodopa 25-100 mg 4 times daily as needed. In addition to rasagiline 1 mg p.o. once daily. Patient states tremors are at a minimum and has been stable since he was diagnosed at age 67. Patient very active and exercises daily in addition to a well-balanced diet in order to promote overall health. #Anxiety: Patient overall doing well and managing on sertraline 50 mg p.o. once daily. Does not need refills at this time. # Elevated glucose of 120. A1c in office today --- 5.7%. Will continue to monitor. # BPH: Well-managed. Patient currently not on any medications. Follows up with urology as needed. #Constipation: Patient reports history of constipation. States he is on a regimen of magnesium with flaxseed oil 1000 mg p.o. once daily for which she takes at night. #Anemia: Resolved. Patient reports history of anemia. Previous blood work revealed slightly low RBC and slightly low hemoglobin hematocrit of 12.2 and 38.9. Has trialed iron supplements. States he donates blood every 8 weeks as often as he can. Recommended patient positives the donation of blood in order to see improvement in CBC. Patient was recommended to start iron supplement but states due to history of constipation he avoided this. Most recent blood work reveals CBC has returned to normal limits. This includes RBCs, hemoglobin and hematocrit. Advised patient to discontinue blood donations as we continue to monitor CBC. Plan to repeat CBC with 6-month follow-up. #Prevention: Up-to-date on all vaccines including influenza, COVID, pneumococcal, shingles, tetanus and RSV. Patient to undergo another colonoscopy. Last was performed in 2018 with plans to repeat in 5 years. This has been delayed due to Dr. Boothe schedule. This is now scheduled for July 2024. Discussed labs which are all within normal limits aside from what was addressed above. Fall risk assessment performed. Patient denies any alcohol, tobacco or marijuana or other drug use. HCP discussed. Plan to follow-up in 6 months and repeat labs including CBC, CMP, lipid, hemoglobin A1c and PSA. Patient is here for a Medicare wellness visit. Complete paperwork was reviewed and updated and has been filed and scanned. Depression screen completed. Alcohol AUDIT SCREEN completed. Obesity screen completed. Cardiovascular risk stratification screen completed. Cognition assessed and within reasonable limits Fall risk assessed. Discussed healthcare proxy. Discussed [place] order for life sustaining treatment, end-of-life issues, intubation and resuscitation dialysis artificial nutrition and hydration is appropriate. We discussed [place] order for life sustaining treatment and healthcare proxy. We discussed need for resuscitation, intubation, ventilation, need for dialysis, short-term versus long-term, nutrition, IV nutrition and hydration. Total time spent was 45 minutes with greater than 50% spent on counseling and coordinating care. Our practice utilizes Medicare approve Chronic Care management. This covers your referrals, prescription renewals, health maintenance and after hour phone calls. All questions answered to patients satisfaction. Patient verbalized understanding of diagnosis and treatments explained. To call sooner prior to next visit it any questions/concerns arise. Case discussed with collaborating physician Dr. Antony who reviewed the assessment and plan. Chart, medications, labs, vital signs reviewed. Dictation was accomplished with the use of [employer] voice recognition software, prone to medical misidentifications and grammatical errors. This is unintentional and the practitioner does try to identify and correct these, but some could still be present. Please do not hesitate to contact practitioner for clarification. 05/31/2024 Screening for diabetes mellitus (ICD-10 - Z13.1) Lorne is a pleasant 69-year-old male present today for MWV. #Hyperlipidemia: Managed on rosuvastatin 5 mg p.o. once daily. Most recent labs reveal slightly elevated LDL of 105. Patient reports he recently returned back from [facility] and this may be related to diet. Plan to continue rosuvastatin 5 mg and make lifestyle modifications including limiting butter, fried food and fatty food from diet. Encouraged eating more fiber, protein, fruits and vegetables. Plan to repeat lipids with next follow-up. # Parkinson's: Patient currently on carbidopa-levodopa 25-100 mg 4 times daily as needed. In addition to rasagiline 1 mg p.o. once daily. Patient states tremors are at a minimum and has been stable since he was diagnosed at age 67. Patient very active and exercises daily in addition to a well-balanced diet in order to promote overall health. #Anxiety: Patient overall doing well and managing on sertraline 50 mg p.o. once daily. Does not need refills at this time. # Elevated glucose of 120. A1c in office today --- 5.7%. Will continue to monitor. # BPH: Well-managed. Patient currently not on any medications. Follows up with urology as needed. #Constipation: Patient reports history of constipation. States he is on a regimen of magnesium with flaxseed oil 1000 mg p.o. once daily for which she takes at night. #Anemia: Resolved. Patient reports history of anemia. Previous blood work revealed slightly low RBC and slightly low hemoglobin hematocrit of 12.2 and 38.9. Has trialed iron supplements. States he donates blood every 8 weeks as often as he can. Recommended patient positives the donation of blood in order to see improvement in CBC. Patient was recommended to start iron supplement but states due to history of constipation he avoided this. Most recent blood work reveals CBC has returned to normal limits. This includes RBCs, hemoglobin and hematocrit. Advised patient to discontinue blood donations as we continue to monitor CBC. Plan to repeat CBC with 6-month follow-up. #Prevention: Up-to-date on all vaccines including influenza, COVID, pneumococcal, shingles, tetanus and RSV. Patient to undergo another colonoscopy. Last was performed in 2018 with plans to repeat in 5 years. This has been delayed due to Dr. Boothe schedule. This is now scheduled for July 2024. Discussed labs which are all within normal limits aside from what was addressed above. Fall risk assessment performed. Patient denies any alcohol, tobacco or marijuana or other drug use. HCP discussed. Plan to follow-up in 6 months and repeat labs including CBC, CMP, lipid, hemoglobin A1c and PSA. Patient is here for a Medicare wellness visit. Complete paperwork was reviewed and updated and has been filed and scanned. Depression screen completed. Alcohol AUDIT SCREEN completed. Obesity screen completed. Cardiovascular risk stratification screen completed. Cognition assessed and within reasonable limits Fall risk assessed. Discussed healthcare proxy. Discussed [place] order for life sustaining treatment, end-of-life issues, intubation and resuscitation dialysis artificial nutrition and hydration is appropriate. We discussed [place] order for life sustaining treatment and healthcare proxy. We discussed need for resuscitation, intubation, ventilation, need for dialysis, short-term versus long-term, nutrition, IV nutrition and hydration. Total time spent was 45 minutes with greater than 50% spent on counseling and coordinating care. Our practice utilizes Medicare approve Chronic Care management. This covers your referrals, prescription renewals, health maintenance and after hour phone calls. All questions answered to patients satisfaction. Patient verbalized understanding of diagnosis and treatments explained. To call sooner prior to next visit it any questions/concerns arise. Case discussed with collaborating physician Dr. Antony who reviewed the assessment and plan. Chart, medications, labs, vital signs reviewed. Dictation was accomplished with the use of [employer] voice recognition software, prone to medical misidentifications and grammatical errors. This is unintentional and the practitioner does try to identify and correct these, but some could still be present. Please do not hesitate to contact practitioner for clarification. Plan Of Treatment Pending Test Test Name Order Date Lipid Panel 10/02/2019 Lipid Panel 08/22/2017 Comp. Metabolic Panel (14) 10/02/2019 PSA Total+ Free 10/04/2018 CBC 10/02/2019 CBC 08/22/2017 HIV 10/03/2019 Urinalysis 10/02/2019 EKG 10/05/2017 25OH VITAMIN D 02/03/2023 25OH VITAMIN D 04/15/2021 25OH VITAMIN D 10/02/2019 BASIC METABOLIC PANEL 04/15/2021 CBC (COMPLETE BLOOD COUNT) 10/11/2018 CBC (COMPLETE BLOOD COUNT) 10/17/2019 CBC (COMPLETE BLOOD COUNT) 10/02/2020 CBC (COMPLETE BLOOD COUNT) 08/18/2018 CBC (COMPLETE BLOOD COUNT) WITH DIFF 08/2022 COMPREHENSIVE METABOLIC PANEL 02/03/2023 COMPREHENSIVE METABOLIC PANEL 10/11/2018 COMPREHENSIVE METABOLIC PANEL 10/17/2019 COMPREHENSIVE METABOLIC PANEL 08/18/2018 COMPREHENSIVE METABOLIC PANEL 10/02/2020 COMPREHENSIVE METABOLIC PANEL 08/22/2017 HEMOGLOBIN A1C 10/02/2020 HEMOGLOBIN A1C 08/18/2018 HEMOGLOBIN A1C 04/15/2021 HEMOGLOBIN A1C 10/17/2019 LIPID PANEL 10/17/2019 LIPID PANEL 10/11/2018 LIPID PANEL 10/15/2020 LIPID PANEL 04/15/2021 LIPID PANEL 02/03/2023 LIPID PANEL 08/18/2018 LIPID PANEL 10/02/2020 MICROALBUMIN, URINE 04/15/2021 PSA, SCREEN 10/02/2020 PSA, SCREEN 08/22/2017 T4, FREE 04/15/2021 TSH 04/15/2021 URINALYSIS W/REFLEX CULTURE 02/03/2023 URINALYSIS, COMPLETE 10/11/2018 URINALYSIS, COMPLETE 10/17/2019 URINALYSIS, COMPLETE 10/02/2020 PSA Free 02/24/2021 Lipid Panel 02/24/2021 CTA Heart w Calcium Score 10/11/2018 CBC 02/24/2021 URINALYSIS 02/24/2021 COMPREHENSIVE METABOLIC PANEL 02/24/2021 LIPID PANEL, STANDARD 11/28/2024 LIPID PANEL, STANDARD 10/12/2023 LIPID PANEL, STANDARD 05/31/2024 LIPID PANEL, STANDARD 08/02/2022 LIPID PANEL, STANDARD 03/17/2022 COMPREHENSIVE METABOLIC PANEL 08/02/2022 COMPREHENSIVE METABOLIC PANEL 03/17/2022 COMPREHENSIVE METABOLIC PANEL 05/31/2024 COMPREHENSIVE METABOLIC PANEL 10/12/2023 COMPREHENSIVE METABOLIC PANEL 11/28/2024 CBC (INCLUDES DIFF/PLT) 11/28/2024 CBC (INCLUDES DIFF/PLT) 10/12/2023 CBC (INCLUDES DIFF/PLT) 05/31/2024 CBC (INCLUDES DIFF/PLT) 03/17/2022 CBC (INCLUDES DIFF/PLT) 08/02/2022 URINALYSIS, COMPLETE 08/02/2022 URINALYSIS, COMPLETE 10/12/2023 HEMOGLOBIN A1c 05/31/2024 HEMOGLOBIN A1c 03/17/2022 PSA (FREE AND TOTAL) 03/17/2022 PSA (FREE AND TOTAL) 10/12/2023 PSA (FREE AND TOTAL) 05/31/2024 PSA (FREE AND TOTAL) 11/28/2024 PSA (FREE AND TOTAL) 08/24/2021 PSA (FREE AND TOTAL) 05/28/2024 T4 (THYROXINE), TOTAL 03/17/2022 TSH 03/17/2022 TSH 07/06/2023 TSH 10/12/2023 VITAMIN D,25-OH,TOTAL,IA 03/17/2022 HEMOGLOBIN 02/24/2021 Next Appt Details Provider Name:YONI MICHELE, 05/30/2025 08:00:00 AM, [address], [place], [address], Insurance Providers Payer Name Payer Address Payer Phone Subscriber Number Group Number Insured Name Patient Relationship to Insured Coverage Start Date Coverage End Date Medicare Part B [id number] [address] [place], [place] [id number] LORNE MONTANEZ Self - patient is the insured [employer] [address] [place] [address] [id number] LORNE MONTANEZ Self - patient is the insured 2 Medical (General) History Medical History History ICD Code Hyperlipidemia, mixed E78.2 Parkinsonism, unspecified G20.C BPH without urinary obstruction N40.0 Anxiety Prediabetes Surgical History Surgery Date(Month/Year) knee surgery colonoscopy 3 years
--- OUTSIDE RECORDS SUMMARY | 2025-01-09 14:13 | XMS_ITS | Clinical Summary ---
Author Organization [facility] Address [address] [place] [address] Phone Care Team Providers Care Route Clerk Name Role Phone Anali Antony MD Primary Care Provider Allergies No known active allergies Medications carbidopa-levod opa (SINEMET) 25-100 mg per tablet TAKE 1/2 TABLET BY MOUTH 4 TIMES DAILY FOR 3 WEEKS THEN 1 TAB 4 TIMES DAILY DIRECTED 01/12/2022 Active rasagiline (AZILECT) 1 mg TAKE 1 TABLET BY MOUTH AFTER FOOD IN THE MORNING 12/24/2021 Active Social History Tobacco Use Types Packs/Day Years Used Date Smoking Tobacco: Never Smokeless Tobacco: Never Education Answer Date Recorded Are you interested in more education? Not on prince e 08/27/2022 Are you concerned about learning? Not on file 08/27/2022 No 08/27/2022 No 08/27/2022 Digital Access Answer Date Recorded No 09/25/2022 No 09/25/2022 No 09/25/2022 Reliable internet access at home? Not on file 09/25/2022 Device with a working camera? Not on file Sex and Gender Information Value Date Recorded Sex Assigned at Male 11/19/2021 9:29 AM EDT Legal Sex Male 10:36 PM EDT Gender Identity Male 11/19/2021 9:29 AM EDT Sexual Orientation Straight 11/19/2021 9: 29 AM EDT Last Filed Vital Signs Vital Sign Reading Time Taken Comments Blood Pressure 134/84 03/04/2022 3:53 PM EDT Pulse 60 03/04/2022 3:53 PM EDT Temperature 36.4 C (97.5 F) 03/04/2022 3:53 PM EDT Respiratory Rate - - Oxygen Saturation 98% 03/04/2022 3:53 PM EDT Inhaled Oxygen Concentration - - Weight 85.8 kg (189 lb 3.2 oz) 03/04/2022 3:53 P M EDT Height - - Body Mass Index - - Plan of Treatment Health Maintenance Due Date Last Done Comments LIPID PANEL 1953 DEPRESSION SCREENING 1965 HEPATITIS C SCREENING 1971 COLOGUARD 1998 COLONOSCOPY 1998 COLORECTAL CANCER SCREENING 1998 FIT TEST 1998 FOBT 1998 SIGMOIDOSCOPY 1998 VIRTUAL COLONOSCOPY 1998 ZOSTER VACCINES (2 of 2) 11/16/2018 09/21/2018 PNEUMOCOCCAL VACCINES (50+ years) (2 of 2 - PPSV23) 04/10/2019 04/10/2018 INFLUENZA VACCINE (#1) 2024 , 01/25/2020, 01/18/2019, Additional history exists COVID-19 VACCINE (2024- season) 2024 08/17/2021, 02/11/2021, 08/11/2020, Additional history exists Adult Td,Tdap Booster 01/25/2026 01/26/2016 RSV VACCINE (1 - 1-dose 75+ series) 02/15/2028 SMOKING STATUS SCREENING (Once After 26 Yrs) Completed 03/04/2022 HEPATITIS A VACCINES Aged Out No long er eligible based on patient's age to complete this topic HIB VACCINES Aged Out No longer eligi ble based on patient's age to complete this topic MENINGOCOCCAL VACCINES (ACWY) Aged Out No longer eligible based on patient's age to complete this topic MENINGOCOCCAL VACCINES (B) Aged Out N o longer eligible based on patient's age to complete this topic Medical Devices Not on file Insurance MEDICARE PART A & B [facility] MEDICARE SUPPLEMENT MEDICARE PART A & B [employer] MED[employer] SUPPLEMENT MEDICARE PART A & B [employer] SUPPLEMENT MEDICARE PART A & B Member Subscriber Plan / Payer (Ef fective 2018-Present) Name:Elmo Wright Member ID:[id number] Relation to Subscriber:Self Name:Elmo Wright Subscriber ID:[id number] Payer ID:[id number] Group ID:Not on file Type:Medicare Address: [facility] [employer] [facility] [address] [place] [phone] [facility] [employer] MEDICARE SUPPLEMENT MEDICARE PART A & B [facility] [employer] MEDICARE SUPPLEMENT MEDICARE PART A & B [facility] [employer] MEDICARE SUPPLEMENT MEDICARE PART A & B [facility] MEDICARE SUPPLEMENT MEDICARE PART A & B [employer] MEDICARE SUPPLEMENT MEDICARE PART A & B [employer] MEDICARE SUPPLEMENT Care Teams Route Clerk Relationship Specialty Start Date End Date Anali Antony MD [address] [place] [phone] PCP - General Internal Medicine 11/19/21 Additional Source Comments The information contained in this document represents components of the legal health record. It is not the complete legal health record.[facility]
--- OUTSIDE RECORDS SUMMARY | 2025-01-09 14:13 | XMS_ITS | Clinical Summary ---
Author Organization [facility] Address [address] [place] [address] Care Team Providers Care Manifold Operator Name Role Phone Unavailable Primary Care Provider Unavailabl e Social History Tobacco Use Types Packs/Day Years Used Date Smoking Tobacco: Never Assessed Sex and Gender Information Value Date Recorded Sex Assigned at Not on file Gender Identity Not on file Sexual Orientation Not on file Plan of Treatment Health Maintenance Due Date Last Done Comments Hepatitis C Screening 1955 COVID-19 Vaccine (#1) 1953 Depression Screening 1965 Preventative Health Evaluation 1971 DTap / Tdap / Td (1 - Tdap) 02/15/1972 Colon Cancer Screening (Colonoscopy) 1998 Shingrix-Zoster Vaccine (1 of 2) 2003 Fall Risk Assessment 2018 Pneumococcal Vaccine (1 of 1 - PCV) 2018 Influenza Vaccine (#1) 2024 RSV Adult > 60+ Yrs or Pregn ant (1 - 1-dose 75+ series) 02/15/2028 Hepatitis B Vaccines Aged Out No long er eligible based on patient's age to complete this topic RSV Ped < 20 months Aged Out No longe r eligible based on patient's age to complete this topic
== END 2025-01-09 12:09 | disposition home or self-care (01) ==
LOC: HO.HSM 11:07
PROVIDERS: PCP Internal Medicine; Referring Provider Internal Medicine; Visit Provider Registered Nurse
DX: G20.A1 Parkinson's disease without dyskinesia, without mention of fluctuations (principal); F41.9 Anxiety disorder, unspecified
CPT/HCPCS: 99214

== ENCOUNTER 2025-02-20 11:29 | Outpatient (AMB) | payer OTHER, SELFPAY ==
--- NOTE | 2025-02-20 12:19 | A.OFFVIS_ITS ---
Intake Visit Reasons: 6 weeks Allergies No Known Allergies Allergy (Verified 01/09/25 11:36) Medication List - Last Reconciled 02/20/25 by Lauren Smith MD bisacodyl 10 mg PO carbidopa-levodopa 25-100 mg 1.5 tabs PO QID clonazepam (Klonopin) 0.5 mg PO BEDTIME 30 days rasagiline 1 mg PO QAM rosuvastatin 5 mg PO DAILY HPI Comments Details: He is here for f/u for PD. He was taking carbidopa-levodopa 25-100mg 1.5 tablets four times a day. Last dose is 10pm . When he wakes at 6 or 7 he has a hard time going. Tremor was about the same, worse with stress and anxiety. No functional impairment. No difficulty eating, drinking, or swallowing. He felt more anxious, especially related to keeping up with work. He was worried and nervous that he may miss something. His daughter noted that he was more stressed when he was in the office. She noticed that he could be overwhelmed at times and sometimes did not know what to do next or how to proceed, for example if he got an email and was not sure how to respond. Staying active and exercising regularly, walking, riding bike, swimming, and scuba diving. His daughter also noted balance was off at times, but no falls. No difficulty getting up from chair or turning in bed. He had some occasional jerking movements of body or arms, u sually at night. Sleep was okay, wakes a few times during the night to use bathroom. Previously felt he was moving slower, especially in the morning, stiff and muscles tight. Less energy, napping in the afternoon for 30-60 minutes. Working at [employer], flexible hours and working remote, daughter taking over practice. More irritable and less patience, some stress in marriage. Anxious and feels down some mornings which gets better as day goes on. Daughter noticed more anxiety and frustration. Goes to [employer] and [employer] in summer. More anxious, stressed, and overwhelmed at work. Not able to deal with stress as well as before. Moving slowly in the morning. He developed tremors in his legs around 2019, was seen by Dr. Fagan about 6 months later and was told it was just tremor. By 2021, the tremor had gotten slowly worse and right leg was more involved. He felt that his balance was off. His gait had become more shuffling and he tended not to knot picker cloth his right leg. His also became slow in doing everything. His posture had become somewhat stooped and he did not swing his arms when he walks. He also had a tendency to lose his balance. He has to rock himself out of the chair. He was moodier and agitated with grandchildren. Sometimes his eyes feel dry and to start water a lot. No change in his speech. His handwriting as well as been poor. Got a second opinion at [facility] and they concurred with Dx and RX. [facility] Medical History (Updated 01/09/25 @ 11:38 by Mary Carmen Clemons CNP) Anxiety HLD (hyperlipidemia) Parkinson disease Review of Systems Const Denies chills, Denies daytime sleepiness, Denies difficulty sleeping, Denies fatigue, Denies fever(s), Denies frequent falls, Denies headache(s), Denies increased appetite, Denies poor appetite, Denies snoring, Denies weakness, Denies weight gain and Denies weight loss Eyes Denies loss of vision ENT Denies vertigo, Denies dizziness, Denies headache(s) and Denies neck pain Card Denies chest pain at rest, Denies chest pain with activity, Denies syncope, Denies leg edema, Denies palpitations, Denies dyspnea and Denies dyspnea on exertion Resp Denies cough, Denies dyspnea, Denies dyspnea on exertion and Denies snoring GI Denies abdominal pain, Denies constipation, Denies heartburn, Denies diarrhea and Denies nausea Denies urinary frequency, Denies urinary incontinence and Denies urinary urgency Musc Denies abnormal gait, Denies back pain, Denies myalgias, Denies arthralgias, Denies neck pain, Denies numbness and Denies tingling Neuro Denies abnormal gait, Denies vertigo, Denies dizziness, Denies syncope, Denies frequent falls, Denies headache(s), Denies lack of coordination, Denies loss of vision, Denies memory loss, Denies numbness, Denies Other visual disturbances, Denies restless legs, Denies seizure-like activity, Denies tingling, Denies paresthesias, Reports tremor(s) and Denies weakness Psych Reports anxiety, Reports depression, Denies auditory hallucinations, Denies memory loss and Denies visual hallucinations Endo Denies fatigue and Denies palpitations Physical Exam Const Other: General Appearance:? normal, in no acute distress. Heart:? S1, S2 normal, no murmurs. Lungs:? clear anteriorly and posteriorly. Musculoskeletal:? normal. Extremities:? no edema. Psych:? alert, oriented, cognitive function intact, cooperative with exam. Neuro Other: Abnormal Neurological Findings:?Decreased facial expressions and reduced blinking frequency. Forward leaning posture and decreased arm swing bilaterally. Mild intermittent bilat leg resting Parkinsonian tremor with a flexion extension at the ankle and in abduction and abduction at the hip, increased when discussing stressors, L > R.?Mild intermittent resting tremor?to LUE.?Mild increase tone and cogwheeling rigidity to BUE, L > R. Mental Status: alert and oriented X 3. Normal attention, orientation, memory, and affect. Cranial Nerves: Pupils are equal, round, and reactive to light. External ocular muscles are intact. Visual altamirano are full, no ptosis. Face is symmetrical, no facial weakness or droop. Facial sensations are normal. Tongue protrudes in midline. Palate elevates symmetrically. Shoulder shrugging is normal Motor Examination: Normal muscle tone, bulk and strength. No atrophy or fasciculations. No drift of the extended upper extremities. DTR 2+. Plantars are flexor. Sensory Exam: Normal light touch, temperature, pinprick, vibration, and joint- position sensations. Rhomberg sign is absent. Coordination: No ataxia. No titubation. Gait Exam: As above. Cerebellar Signs: [id number] is okay. Extrapyramidal System: As above. Speech: Normal. Assessment & Plan Assessment & Plan (1) Parkinson disease: Code(s): G20.A1 - Parkinson's disease without dyskinesia, without mention of fluctuations Category: Medical Plan: They were educated on this condition, its progression, and treatment, and questi ons answered. They were given information where they could read more about it online. Continue rasagiline 1mg 1 tablet in the morning with food. Continue carbidopa-levodopa 25-100mg 1.5 tablets four times a day plus an extra pill at 4 am when he gets up to urinate. Stay physically active with [employer], walking and exercise and diving, swimming.. (2) Anxiety: Code(s): F41.9 - Anxiety disorder, unspecified Category: Medical Plan: Escitalopram did not help and medication was stopped. Clonazepam 0.5mg 1 tablet at bedtime, is working better. Having some elements of depression so I will add Sertraline 25mg Plan Continue current meds. Medications: New sertraline 25 mg PO DAILY 30 tabs 5RF 30 days Coding Level of Care Code Est Pt Level 4 (41387) Diagnoses Parkinson disease G20.A1 Anxiety F41.9
--- OUTSIDE RECORDS SUMMARY | 2025-02-20 15:52 | XMS_ITS | Clinical Summary ---
Author Organization [employer] [facility] Address [address] [place] [address] Care Team Providers Care Proof Coin Collector Name Role Phone Unavailable Primary Care Provider [...]
--- OUTSIDE RECORDS SUMMARY | 2025-02-20 15:53 | XMS_ITS | Patient Health Record ---
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 Name Role Phone AIDAN ANTONY Primary Care Provider LENYYONI Allen Unavailable [phone] Allergies No Known Allergies Results Component Value Reference Range Notes FREE PSA PROFILE Reviewed date:03/12/2024 09:16:50 AM [...] date:03/01/2024 10:29:26 AM Interpretation: Performing Lab: Notes/Report: [facility], a member of [address] [address] L[employer] Stacker - Sabine Hammonds MD TSH 1.47 0.40-4.00 uIU/ml LIPID PROFILE Reviewed date:03/01/2024 10:23:35 AM Interpretation: Performing Lab: Notes/Report: CHOLESTEROL 176 0-200 mg/dL TRIGLYCERIDES 60 0-150 mg/dL HDL CHOLESTEROL 75 >40 mg/dL LDL CALCULATED 89 0-100 mg/dL TC-HDLC RATIO 2.4 0-4.4 mg/dL CBC WITH AUTO DIFF Reviewed date:03/01/2024 10:23:45 AM Interpretation: Performing Lab: Notes/Report: Original Ordering Provider: AIDAN ANTONY MD [facility] [address] [employer] - Sabine Hammonds MD WBC 5.7 4.8-10.8 [...] Note Original Ordering Provider: AIDAN ANTONY MD [facility] [address] [employer] - Sabine Hammonds MD GLUCOSE, (UA) NEGATIVE NEGATIVE mg/dL BILIRUBIN, URINE NEGATIVE NEGATIVE KETONE, URINE NEGATIVE NEGATIVE mg/dL SPECIFIC GRAVITY, URINE 1.024 1.003-1.030 BLOOD, URINE NEGATIVE NEGATIVE PH, URINE 5.5 5.0-8.0 PROTEIN, URINE NEGATIVE <= TRACE mg/dl UROBILINOGEN, URINE 0.2 0.2-1.0 E.U./dL NITRITE, URINE NEGATIVE NEGATIVE LEUKOCYTE ESTERASE, URINE NEGATIVE NEGATIVE Note Original Ordering Provider: AIDAN ANTONY MD [facility] [address] [employer] - Sabine Hammonds MD PROSTATE SPECIFIC ANTIGEN ROSA GONZALEZ Reviewed date:11/21/2024 12:47:54 PM Interpretation: Performing Lab: Notes/Report: The Siemens Advia Centaur Chemiluminescent Immunoassay is [...] 122 <145 mg/dL Chol/HDL Ratio 2.7 0.0-4.4 CBC WITH AUTO DIFFERENTIAL Reviewed date:11/21/2024 [...] K/mcL Immature Granulocytes Absolute 0.02 0.00-0.03 K/mcL URINALYSIS WITH REFLEX MICRO SCOPIC Reviewed date:06/01/2024 08:55:27 AM Interpretation: Performing Lab: Notes/Report: Specific [place] Urine 1.015 1.003-1.030 pH, Urine 6.0 5.0-8.0 [...] 2.6 0.0-4.4 CBC WITH AUTO DIFFERENTIAL Reviewed date:06/01/2024 09:14:50 [...] K/mcL Immature Granulocytes Absolute 0.02 0.00-0.03 K/mcL HEMOGLOBIN A1c Reviewed date:11/28/2024 01:16:39 PM Interpretation:5.9 [...] Status Risk Notes Problem Vitamin D deficiency (25223285) Vitamin D deficiency, unspecified (E55.9) Active confirmed Problem Mixed hyperlipidemia (434968275) Mixed hyperlipidemia (E78.2) Active confirmed Problem Hyperlipidemia (96874068) Hyperlipidemia, unspecified (E78.5) Active confirmed Problem Otitis externa of left ear (7698255147116506) Otitis externa in other diseases classified elsewhere, left ear (H62.42) Active confirmed Problem Constipation (15612541) Constipation, unspecified (K59.00) Active confirmed Problem Screening for malignant neoplasm of prostate (849580566) Encounter for screening for malignant neoplasm of prostate (Z12.5) Active confirmed Problem Diabetes mellitus screening (264970737) Encounter for screening for diabetes mellitus (Z13.1) Active confirmed Problem Lower urinary tract symptoms due to benign prostatic hypertrophy (50525011912233) Benign prostatic hyperplasia with lower urinary tract symptoms (N40.1) Active confirmed Problem Pure hypercholesterolemia (857103801) Pure hypercholesterolemia (E78.00) Active confirmed Problem Hyperlipidaemia (57629462) Hyperlipidemia, unspecified hyperlipidemia type (E78.5) Active confirmed Problem Anxiety (74303810) Anxiety (F41.9) Active confi rmed Problem Adult health examination (847601560) Adult general medical exam (Z00.00) Active confirmed Problem Annual health maintenance examination (46956806) Annual physical exam (Z00.00) Active confirmed Problem Tremor (59467939) Tremor (R25.1) Active confirm ed Problem Constipation (36498530) Constipation, unspecified constipation type (K59.00) Active confirmed Problem Parkinson disease (40580479) Parkinson disease (G20) Active confirmed Problem Anemia (527300751) Acute anemia (D64.9) Active confirmed Problem Ventricular prematur e complex (disorder) (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) PVC (premature ventricular contraction) (I49.3) Active confirmed Problem History of anemia (988636215) History of anemia (Z86.2) Active confirmed Problem Otalgia of left ear (1804542041) Otalgia of left ear (H92.02) Active confirmed Problem Lipid screening (269269535) Lipid screening (Z13.220) Active confirmed Problem Disorder of bilatera l ears (disorder) (3838515870387434) Congestion of both ears (H93.8X3) Active confirmed Problem Parkinsonism (disorder) (89132670) Parkinsonism, unspecified (G20.C) Active confirmed Problem Benign prostatic hypertrophy without outflow obstruction (599608975) BPH without urinary obstruction (N40.0) Active confirmed Problem Generalized anxiety disorder (08748585) Anxiety, generalized (F41.1) Active confirmed Problem Parkinson's disease (disorder) (64527143) Parkinson's disease, unspecified whether dyskinesia present, unspecified whether manifestations fluctuate (G20.A1) Active confirmed Vital Signs Heart Rate 62 /min 11/28/2024 Blood pressure diastolic 66 mm Hg 11/28/2024 Oximetry 98 % 11/28/2024 Height 68 in 11/28/2024 Blood pressure systolic 120 mm Hg 11/28/2024 Weight 180.8 lbs 11/28/2024 BMI 27.49 kg/m2 11/28/2024 Encounters Encounter Location Date Provider Diagnosis [facility] [address] [place] [address] 03/07/2024 YONI LENY Mixed hyperlipidemia E78.2 ; Parkinson disease G20 ; Benign prostatic hyperplasia with lower urinary tract symptoms N40.1 ; Anxiety, generalized F41.1 ; History of anemia Z86.2 and Parkinson's disease, unspecified whether dyskinesia present, unspecified whether manifestations fluctuate G20.A1 [facility] [address] [place] [address] 05/31/2024 YONI LENY Mixed hyperlipidemia E78.2 ; [...] mellitus Z13.[address] [facility] [address] [place] [address] 11/28/2024 YONI MICHELE Hyperlipidemia, unspecified hyperlipidemia type E78.5 ; Parkinson disease G20 ; Prediabetes R73.03 ; Benign prostatic hyperplasia with lower urinary tract symptoms N40.1 and Encounter for examination of blood pressure without abnormal findings Z01.[address] [facility] [address] [place] [address] 05/28/2024 YONI BLACKMANA [facility] [address] [place] [address] 05/28/2024 YONI MICHELE Benign prostatic hyperplasia with lower urinary tract symptoms N40.1 [facility] [address] [address] 08/01/2024 AIDAN ANTONY [facility] [address] [address] 11/29/2024 YONI CRAIGUPA [facility] [address] [address] 05/31/2024 TALKAPIL GARLANDAN [facility] [address] [address] 11/28/2024 YONI BLACKMANA Assessments Encounter Date Diagnosis (ICD Code) Assessment [...] Dictation was accomplished with the use of [employer] voice recognition software, prone to medical misidentifications [...] Dictation was accomplished with the use of [employer] voice recognition software, prone to medical misidentifications [...] Patient reports he recently returned back from [facility] and this may be related to diet. [...] Fall risk assessed. Discussed healthcare proxy. Discussed [place] order for life sustaining treatment, end-of-life issues, intubation and resuscitation dialysis artificial nutrition and hydration is appropriate. We discussed [place] order for life sustaining treatment and healthcare [...] Dictation was accomplished with the use of [employer] voice recognition software, prone to medical misidentifications [...] Patient reports he recently returned back from [facility] and this may be related to diet. [...] Fall risk assessed. Discussed healthcare proxy. Discussed [place] order for life sustaining treatment, end-of-life issues, intubation and resuscitation dialysis artificial nutrition and hydration is appropriate. We discussed [place] order for life sustaining treatment and healthcare [...] Dictation was accomplished with the use of [employer] voice recognition software, prone to medical misidentifications [...] Dictation was accomplished with the use of [employer] voice recognition software, prone to medical misidentifications [...] Dictation was accomplished with the use of [employer] voice recognition software, prone to medical misidentifications [...] Dictation was accomplished with the use of [employer] voice recognition software, prone to medical misidentifications and grammatical errors. This is unintentional and the practitioner does try to identify and correct these, but some could still be present. Please do not hesitate to contact practitioner for clarification. 05/31/2024 Parkinson disease (ICD-10 - G20) Lorne is a pleasant 69-year-old male present today for MW. #Hyperlipidemia: Managed on rosuvastatin 5 mg p.o. once daily. Most recent labs reveal slightly elevated LDL of 105. Patient reports he recently returned back from [facility] and this may be related to diet. [...] Fall risk assessed. Discussed healthcare proxy. Discussed [place] order for life sustaining treatment, end-of-life issues, intubation and resuscitation dialysis artificial nutrition and hydration is appropriate. We discussed [place] order for life sustaining treatment and healthcare [...] Dictation was accomplished with the use of [employer] voice recognition software, prone to medical misidentifications [...] Dictation was accomplished with the use of [employer] voice recognition software, prone to medical misidentifications [...] Patient reports he recently returned back from [facility] and this may be related to diet. [...] Fall risk assessed. Discussed healthcare proxy. Discussed [place] order for life sustaining treatment, end-of-life issues, intubation and resuscitation dialysis artificial nutrition and hydration is appropriate. We discussed [place] order for life sustaining treatment and healthcare [...] Dictation was accomplished with the use of [employer] voice recognition software, prone to medical misidentifications [...] Dictation was accomplished with the use of [employer] voice recognition software, prone to medical misidentifications [...] Dictation was accomplished with the use of [employer] voice recognition software, prone to medical misidentifications [...] Dictation was accomplished with the use of [employer] voice recognition software, prone to medical misidentifications [...] Patient reports he recently returned back from [facility] and this may be related to diet. [...] Fall risk assessed. Discussed healthcare proxy. Discussed [place] order for life sustaining treatment, end-of-life issues, intubation and resuscitation dialysis artificial nutrition and hydration is appropriate. We discussed [place] order for life sustaining treatment and healthcare [...] Dictation was accomplished with the use of [employer] voice recognition software, prone to medical misidentifications [...] Dictation was accomplished with the use of [employer] voice recognition software, prone to medical misidentifications [...] Dictation was accomplished with the use of [employer] voice recognition software, prone to medical misidentifications [...] Patient reports he recently returned back from [facility] and this may be related to diet. [...] Fall risk assessed. Discussed healthcare proxy. Discussed [place] order for life sustaining treatment, end-of-life issues, intubation and resuscitation dialysis artificial nutrition and hydration is appropriate. We discussed [place] order for life sustaining treatment and healthcare [...] Dictation was accomplished with the use of [employer] voice recognition software, prone to medical misidentifications [...] Patient reports he recently returned back from [facility] and this may be related to diet. [...] Fall risk assessed. Discussed healthcare proxy. Discussed [place] order for life sustaining treatment, end-of-life issues, intubation and resuscitation dialysis artificial nutrition and hydration is appropriate. We discussed [place] order for life sustaining treatment and healthcare [...] Dictation was accomplished with the use of [employer] voice recognition software, prone to medical misidentifications [...] Patient reports he recently returned back from [facility] and this may be related to diet. [...] Fall risk assessed. Discussed healthcare proxy. Discussed [place] order for life sustaining treatment, end-of-life issues, intubation and resuscitation dialysis artificial nutrition and hydration is appropriate. We discussed [place] order for life sustaining treatment and healthcare [...] Dictation was accomplished with the use of [employer] voice recognition software, prone to medical misidentifications [...] Patient reports he recently returned back from [facility] and this may be related to diet. [...] Fall risk assessed. Discussed healthcare proxy. Discussed [place] order for life sustaining treatment, end-of-life issues, intubation and resuscitation dialysis artificial nutrition and hydration is appropriate. We discussed [place] order for life sustaining treatment and healthcare [...] Dictation was accomplished with the use of [employer] voice recognition software, prone to medical misidentifications [...] Patient reports he recently returned back from [facility] and this may be related to diet. [...] Fall risk assessed. Discussed healthcare proxy. Discussed [place] order for life sustaining treatment, end-of-life issues, intubation and resuscitation dialysis artificial nutrition and hydration is appropriate. We discussed [place] order for life sustaining treatment and healthcare [...] Dictation was accomplished with the use of [employer] voice recognition software, prone to medical misidentifications [...] Patient reports he recently returned back from [facility] and this may be related to diet. [...] Fall risk assessed. Discussed healthcare proxy. Discussed [place] order for life sustaining treatment, end-of-life issues, intubation and resuscitation dialysis artificial nutrition and hydration is appropriate. We discussed [place] order for life sustaining treatment and healthcare [...] Dictation was accomplished with the use of [employer] voice recognition software, prone to medical misidentifications [...] Patient reports he recently returned back from [facility] and this may be related to diet. [...] Fall risk assessed. Discussed healthcare proxy. Discussed [place] order for life sustaining treatment, end-of-life issues, intubation and resuscitation dialysis artificial nutrition and hydration is appropriate. We discussed [place] order for life sustaining treatment and healthcare [...] Dictation was accomplished with the use of [employer] voice recognition software, prone to medical misidentifications [...] Patient reports he recently returned back from [facility] and this may be related to diet. [...] Fall risk assessed. Discussed healthcare proxy. Discussed [place] order for life sustaining treatment, end-of-life issues, intubation and resuscitation dialysis artificial nutrition and hydration is appropriate. We discussed [place] order for life sustaining treatment and healthcare [...] Dictation was accomplished with the use of [employer] voice recognition software, prone to medical misidentifications and grammatical errors. This is unintentional and the practitioner does try to identify and correct these, but some could still be present. Please do not hesitate to contact practitioner for clarification. Plan Of Treatment Pending Test Test Name Order Date Lipid Panel 10/02/2019 Lipid Panel 08/22/2017 Comp. Metabolic Panel (14) 10/02/2019 PSA Total+ Free 10/04/2018 CBC 08/22/2017 CBC 10/02/2019 HIV 10/03/2019 Urinalysis 10/02/2019 EKG 10/05/2017 25OH VITAMIN D 10/02/2019 25OH VITAMIN D 02/03/2023 25OH VITAMIN D 04/15/2021 BASIC METABOLIC PANEL 04/15/2021 CBC (COMPLETE BLOOD COUNT) 10/02/2020 CBC (COMPLETE BLOOD COUNT) 08/18/2018 CBC (COMPLETE BLOOD COUNT) 10/11/2018 CBC (COMPLETE BLOOD COUNT) 10/17/2019 CBC (COMPLETE BLOOD COUNT) WITH DIFF 08/2022 COMPREHENSIVE METABOLIC PANEL 10/02/2020 COMPREHENSIVE METABOLIC PANEL 08/22/2017 COMPREHENSIVE METABOLIC PANEL 10/11/2018 COMPREHENSIVE METABOLIC PANEL 10/17/2019 COMPREHENSIVE METABOLIC PANEL 08/18/2018 COMPREHENSIVE METABOLIC PANEL 02/03/2023 HEMOGLOBIN A1C 04/15/2021 HEMOGLOBIN A1C 08/18/2018 HEMOGLOBIN A1C 10/17/2019 HEMOGLOBIN A1C 10/02/2020 LIPID PANEL 10/02/2020 LIPID PANEL 02/03/2023 LIPID PANEL 10/17/2019 LIPID PANEL 10/11/2018 LIPID PANEL 08/18/2018 LIPID PANEL 04/15/2021 LIPID PANEL 10/15/2020 MICROALBUMIN, URINE 04/15/2021 PSA, SCREEN 10/02/2020 PSA, SCREEN 08/22/2017 T4, FREE 04/15/2021 TSH 04/15/2021 URINALYSIS W/REFLEX CULTURE 02/03/2023 URINALYSIS, COMPLETE 10/02/2020 URINALYSIS, COMPLETE 10/11/2018 URINALYSIS, COMPLETE 10/17/2019 PSA Free 02/24/2021 Lipid Panel 02/24/2021 CTA Heart w Calcium Score 10/11/2018 CBC 02/24/2021 URINALYSIS 02/24/2021 COMPREHENSIVE METABOLIC PANEL 02/24/2021 LIPID PANEL, STANDARD 11/28/2024 LIPID PANEL, STANDARD 08/02/2022 LIPID PANEL, STANDARD 05/31/2024 LIPID PANEL, STANDARD 10/12/2023 LIPID PANEL, STANDARD 03/17/2022 COMPREHENSIVE METABOLIC PANEL 10/12/2023 COMPREHENSIVE METABOLIC PANEL 05/31/2024 COMPREHENSIVE METABOLIC PANEL 08/02/2022 COMPREHENSIVE METABOLIC PANEL 11/28/2024 COMPREHENSIVE METABOLIC PANEL 03/17/2022 CBC (INCLUDES DIFF/PLT) 03/17/2022 CBC (INCLUDES DIFF/PLT) 11/28/2024 CBC (INCLUDES DIFF/PLT) 08/02/2022 CBC (INCLUDES DIFF/PLT) 05/31/2024 CBC (INCLUDES DIFF/PLT) 10/12/2023 URINALYSIS, COMPLETE 10/12/2023 URINALYSIS, COMPLETE 08/02/2022 HEMOGLOBIN A1c 05/31/2024 HEMOGLOBIN A1c 03/17/2022 PSA (FREE AND TOTAL) 03/17/2022 PSA (FREE AND TOTAL) 05/28/2024 PSA (FREE AND TOTAL) 11/28/2024 PSA (FREE AND TOTAL) 08/24/2021 PSA (FREE AND TOTAL) 05/31/2024 PSA (FREE AND TOTAL) 10/12/2023 T4 (THYROXINE), TOTAL 03/17/2022 TSH 03/17/2022 TSH 07/06/2023 TSH 10/12/2023 VITAMIN D,25-OH,TOTAL,IA 03/17/2022 HEMOGLOBIN 02/24/2021 Next Appt Details Provider Name:YONI MICHELE, 05/30/2025 08:00:00 AM, [address], [place], [address], Insurance Providers Payer Name Payer Address Payer Phone Subscriber Number Group Number Insured Name Patient Relationship to Insured Coverage Start Date Coverage End Date Medicare Part B J14 [address] [place], [place] [id number] LORNE MONTANEZ Self - patient is the insured 8 [facility] [address] [place] [address] [phone] [id number] LORNE MONTANEZ Self - patient is the insured 2 Medical (General) History Medical History History ICD Code Hyperlipidemia, mixed E78.2 Parkinsonism, unspecified G20.C BPH without urinary obstruction N40.0 Anxiety Prediabetes Surgical History Surgery Date(Month/Year) knee surgery colonoscopy 3 years
--- OUTSIDE RECORDS SUMMARY | 2025-02-20 15:53 | XMS_ITS | Clinical Summary ---
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 Name Role Phone Vy Antony MD Primary Care Provider [phone] Allergies No known active allergies Medications naproxen [...] Series) 2003 Diabetes screening 12/20/2023 12/19/2020, 12/16/2016 Influenza vaccine 11/30/2024 Covid-19 vaccine series (1 - season) 2024 RSV Immunization (1 - 1-dose 75+ series) [...] 65 - 110 mg/dL 12/19/2020 9:12 AM [facility] Comment: Non-fastin-110 mg/dL Fasting (minimum 6 hrs): 65-99 mg/dL BUN 20(H) 7 - 18 mg/dL 12/19/2020 9:12 AM [facility] Creatinine 0.80 0.70 - 1.30 mg/dL 12/19/2020 9:12 AM [facility] eGFR (-[place]) >60 >60 mL/min/1.7 3m2 12/19/2020 9:12 AM [facility] eGFR (NON -[place]ian) >60 >60 mL/min/1.7 3m2 12/19/2020 9:12 AM [facility] Comment: (NOTE) These are estimated GFR [...] 136 - 145 mmol/L 12/19/2020 9:12 AM [facility] Potassium 4.1 3.5 - 5.1 mmol/L 12/19/2020 9:12 AM [facility] Chloride 110(H) 98 - 107 mmol/L 12/19/2020 9:12 AM [facility] CO2 26 21 - 32 mmol/L 12/19/2020 9:12 AM [facility] Anion Gap 7 5 - 15 mmol/L 12/19/2020 9:12 AM [facility] Calcium 8.9 8.5 - 10.1 mg/dL 12/19/2020 9:12 AM [facility] Blood Venipuncture / Unknown 12/19/2020 8:16 AM EDT 12/19/2020 8:21 AM EDT Ricardo Meehan DO LAB [place]LOOD [place] [address], [facility] [phone] from Last 3 Months or Most Recently Relevant to Health Maintenance Insurance COMMERCIAL GENERIC MEDICARE [facility] on file COMMERCIAL GENERIC MEDICARE [facility] on file COMMERCIAL GENERIC [facility]CIAL [facility]IC [facility] Care Teams Steam Shovelman Relationship Specialty Start Date End Date Vy Antony MD PCP - General Internal Medicine 12/16/16
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
--- OUTSIDE RECORDS SUMMARY | 2025-02-20 15:53 | XMS_ITS | Clinical Summary ---
Author Organization [facility] Address [address] [place] [address] Phone Care Team Providers Care Concrete Saw Operator Name Role Phone Anali Antony MD Primary [...] file Insurance MEDICARE PART A & B [facility] MEDICARE SUPPLEMENT MEDICARE PART A & B [employer] MEDICARE SUPPLEMENT MEDICARE PART A & B [employer] MEDICARE SUPPLEMENT MEDICARE PART A & B [facility] EX[employer]ION MEDICARE SUPPLEMENT MEDICARE PART A & B [facility] [employer] MEDICARE SUPPLEMENT MEDICARE PART A & B [facility] [employer] MEDICARE SUPPLEMENT MEDICARE PART A & B [facility] MEDICARE SUPPLEMENT MEDICARE PART A & B [employer] MEDICARE SUPPLEMENT MEDICARE PART A & B [employer] MEDICARE SUPPLEMENT Care Teams Concrete Saw Operator Relationship Specialty Start Date End Date Anali Antony MD [address] [place] [phone] PCP - General Internal Medicine 11/19/21 Additional Source Comments The information contained in this document represents components of the legal health record. It is not the complete legal health record.[facility]
== END 2025-02-20 12:31 | disposition home or self-care (01) ==
LOC: HO.HSM 11:29
PROVIDERS: PCP Internal Medicine; Visit Provider Psychiatry & Neurology Neurology
DX: G20.A1 Parkinson's disease without dyskinesia, without mention of fluctuations (principal); F41.9 Anxiety disorder, unspecified
CPT/HCPCS: 99214